=== PATIENT | male | born 1975 | race Caucasian/White ===

== ENCOUNTER 2016-12-10 04:53 | Emergency (ER) | payer OTHER ==
[~2016-12-10] VITALS: Ht 195.6 cm; Wt 181.4 kg
--- NOTE | 2016-12-10 05:11 | ED GI/GU/ABDOMINAL COMPLAINT ---
See Addendum History of Present Illness General Chief Complaint: Abdominal Pain/Flank Pain Stated Complaint: ABD PAIN, BELCHING, +ND, 8 HRS Source: patient Exam Limitations: no limitations Vital Signs & Intake/Output Vital Signs & Intake/Output Vital Signs Date Time Temp Pulse Resp B/P B/P Pulse O2 O2 Flow FiO2 Mean Ox Delivery Rate 12/10 0748 96.7 77 15 128/76 98 Room Air Room Air 12/10 0508 97.1 68 18 179/92 98 Room Air Allergies Coded Allergies: No Known Allergies (12/10/16) Triage Note: 41 YO MALE TO ER C/O EPIGASTRIC PAIN RADITING TO HIS BACK WITH +BLECHING. STATES HE ATE A MEAL AT [employer] APPROX 8 HOURS AGO AND SINCE THEN HAS HAD THE SYMPTOMS. STATES PAIN IS SHARP IN NATURE. STATES +DIRRHEA FOR A COUPLE WEEKS. Triage Nurses Notes Reviewed? yes HPI: Patient was at the [facility] and had dinner. Shortly after having dinner he developed a sharp stabbing pain in his epigastric area that radiated through to his back. Positive nausea but no vomiting. He has been burping a lot. He denies any chest pain. There is no diarrhea. He denies any fevers or chills. He rates the pain at 7 out of 10. (MAZIN ESTRADA,JANEE Yee) Past History Travel History Traveled to [place] past 21 day No Medical History Any Pertinent Medical History? 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 No (MAZIN ESTRADA,JANEE Yee) Review of Systems Review of Systems Constitutional: Reports: no symptoms. EENTM: Reports: no symptoms. Respiratory: Reports: no symptoms. Cardiovascular: Reports: no symptoms. GI: Reports: see HPI, abdominal pain, nausea. Genitourinary: Reports: no symptoms. Musculoskeletal: Reports: no symptoms. Skin: Reports: no symptoms. Neurological/Psychological: Reports: no symptoms. Hematologic/Endocrine: Reports: no symptoms. Immunologic/Allergic: Reports: no symptoms. All Other Systems: Reviewed and Negative (MAZIN ESTRADA,JANEE Yee) Physical Exam Physical Exam General Appearance: well developed/nourished, alert, awake, mild distress Head: atraumatic, normal appearance Eyes: Bilateral: PERRL, EOMI. Ears, Nose, Throat, Mouth: hearing grossly normal, DRY MUCOSA Neck: normal inspection, supple, full range of motion Respiratory: normal breath sounds, chest non-tender, no respiratory distress, lungs clear Cardiovascular: regular rate/rhythm, normal peripheral pulses Gastrointestinal: normal bowel sounds, soft, no organomegaly, tenderness (RUQ/ EPIGASTRIC AREAN), NO FIERRO'S SIGN Back: normal inspection, normal range of motion, NO CVA TENDERNESS Extremities: normal range of motion Neurologic/Psych: no motor/sensory deficits, awake, alert, oriented x 3, normal gait, normal mood/affect Skin: intact, normal color, warm/dry Core Measures ACS in differential dx? No Severe Sepsis Present: No Septic Shock Present: No (MAZIN ESTRADA,JANEE Yee) Progress Differential Diagnosis: AAA, AMI, biliary colic, cholecystitis, diverticulitis, gastritis, hepatitis, ischemic bowel, inflamm bowel dis, pancreatitis Plan of Care: Orders Procedure Date/time Status US-LIMITED ABDOMEN 12/10 620 Active TROPONIN LEVEL 12/10 0511 Complete LIPASE 12/10 0511 Complete COMPREHENSIVE METABOLIC PANEL 12/10 0511 Complete CBC WITHOUT DIFFERENTIAL 12/10 05 Complete AMYLASE 12/10 0511 Complete EKG 12/10 0511 Active Laboratory Tests 12/10/16 0535: Anion Gap 10, Estimated GFR > 60, BUN/Creatinine Ratio 15.0, Glucose 174 H, Calcium 9.3, Total Bilirubin 1.6 H, AST 296 H, ALT 239 H, Alkaline Phosphatase 175 H, Troponin I < 0.01, Total Protein 7.0, Albumin 4.1, Globulin 2.9, Albumin/Globulin Ratio 1.4, Amylase 42, Lipase 38 12/10/16 0533: CBC w Diff NO MAN DIFF REQ, RBC 4.95, MCV 83.1, MCH 27.9, RDW 14.2, MPV 8.1, Gran % 74.8, Lymphocytes % 19.1 L, Monocytes % 5.1, Eosinophils % 0.8, Basophils % 0.2, Absolute Granulocytes 7.5 H, Absolute Lymphocytes 1.9, Absolute Monocytes 0.5, Absolute Eosinophils 0.1, Absolute Basophils 0, PUBS MCHC 33.6 Diagnostic Imaging: Viewed by Me: Ultrasound. Discussed w/RAD: Ultrasound. Initial ED EKG: NSR, nonspecific ST T wave chg Rhythm Strip: normal sinus rhythm Hand-Off Endorsed To: SAMIA SMITH DO Endorsed Time: 0700 Pending: ultrasound Comments: Patient vomited in the emergency department just after swallowing the GI cocktail. Patient then felt immediate relief and is currently pain-free. (MAZIN ESTRADA,JANEE Yee) Departure Departure Disposition: STILL A PATIENT Condition: Stable Clinical Impression Primary Impression: Upper abdominal pain, unspecified Referrals: PATIENT HAS NO PRIMARY CARE DR (PCP/Family) Departure Forms: Customer Survey General Discharge Information (MAZIN ESTRADA,JANEE Yee) Departure Comments 12/10/16 8:22 AM The patient was signed out to me by Dr. Urias. He is pending ultrasound of the abdomen. (SAMIA SMITH DO)
[2016-12-10 05:42] LABS: ABSOLUTE BASOPHIL COUNT 0 /CUMM (0.0-0.2); ABSOLUTE EOSINOPHIL COUNT 0.1 /CUMM (0.0-0.7); ABSOLUTE GRANULOCYTE CT 7.5 /CUMM (1.4-6.5); ABSOLUTE LYMPH COUNT 1.9 /CUMM (1.2-3.4); ABSOLUTE MONOCYTE COUNT 0.5 /CUMM (0.10-0.60); BASOPHIL % 0.2 % (0.0-2.0); EOSINOPHIL % 0.8 % (0-5); GRANULOCYTE % 74.8 % (42.2-75.2); HEMATOCRIT 41.1 % (42-52); MEAN CORPUSCULAR HGB 27.9 PG (27.0-31.0); MEAN CORPUSCULAR HGB CONC 33.6 G/DL (33.0-37.0); MEAN CORPUSCULAR VOLUME 83.1 FL (80.0-94.0); MEAN PLATELET VOLUME 8.1 FL (7.4-10.4); PLATELET COUNT 312 /CUMM (130-400); RBC DISTRIBUTION WIDTH 14.2 % (11.5-14.5); RED BLOOD CELL CT 4.95 /CUMM (4.70-6.10); WHITE BLOOD CELL COUNT 10.1 /CUMM (4.8-10.8)
--- NOTE | 2016-12-10 08:46 | ULTRASOUND REPORT ---
EXAMINATION: ABDOMINAL ULTRASOUND LIMITED CLINICAL INFORMATION: Abdominal pain. COMPARISON: None. TECHNIQUE: Real-time imaging of the right upper quadrant abdominal viscera. Evaluation is limited secondary to the patient's extreme body habitus and overlying bowel gas. FINDINGS: PANCREAS: The pancreas is obscured due to overlying bowel gas. LIVER: The liver is of normal size and diffuse increased echogenicity without focal lesions nor intrahepatic biliary ductal dilation. GALLBLADDER: The gallbladder is nonvisualized. COMMON BILE DUCT: The common duct is not visualized. RIGHT KIDNEY: Normal. No hydronephrosis. No renal calculi or focal parenchymal lesions. The kidney measures 11.2 cm in maximum dimension. FREE FLUID: None. IMPRESSION: Liver of diffuse increased echogenicity without focal lesions. The appearance is nonspecific, but consistent with fatty infiltration. Limited examination secondary to the patient's extreme body habitus. The gallbladder and pancreas are not visualized.
--- NOTE | 2016-12-10 10:10 | CT SCAN REPORT ---
EXAMINATION: CT ABDOMEN AND PELVIS WITH CONTRAST CLINICAL INFORMATION: Right upper quadrant pain. Evaluate for cholecystitis. COMPARISON: None TECHNIQUE: Multidetector volumetric imaging was performed of the abdomen and pelvis before and after the IV administration of 95 mL of Optiray 320 intravenous contrast. Sagittal and coronal reformatted images were obtained on the technologist's workstation. DLP: 1763 mGy-cm. FINDINGS: LUNG BASES: The visualized lung bases are unremarkable. LIVER, GALLBLADDER, AND BILIARY TREE: The liver is normal in size, shape, and attenuation. No focal hepatic lesion or biliary ductal dilatation is present. The gallbladder is unremarkable with no evidence of radiopaque gallstones, gallbladder wall thickening, or obvious pericholecystic inflammatory changes. PANCREAS: There is fatty infiltration of the pancreas. SPLEEN: Unremarkable. ADRENAL GLANDS: Unremarkable. KIDNEYS AND URETERS: There is a 1.3 cm low-attenuation lesion in the lower pole of the right kidney. Hounsfield units following IV contrast measure 44 not compatible with a simple cyst. The kidneys are otherwise unremarkable. BLADDER: Unremarkable. GASTROINTESTINAL TRACT: There is evidence of diverticulosis. Small and large bowel is otherwise normal. The appendix is not identified with certainty. No evidence of appendicitis is seen. ABDOMINAL WALL: No significant hernia is appreciated. LYMPH NODES: No enlarged lymph nodes are seen. There is no ascites. VASCULAR: The abdominal aorta is normal in caliber. PELVIC VISCERA: Unremarkable. OSSEOUS STRUCTURES: There are degenerative changes of the spine. IMPRESSION: Diverticulosis. No evidence of diverticulitis. 1.3 cm low-attenuation lesion in the lower pole of the right kidney not compatible with a simple cyst. Follow-up ultrasound is recommended. Fatty infiltration of the pancreas. Unremarkable gallbladder by CT.
[2016-12-10 10:16] VITALS: BP 144/79
== END 2016-12-10 11:16 ==
LOC: ERH 04:53
PROVIDERS: Emergency Medicine
DX: R10.13 Epigastric pain (principal)
CPT/HCPCS: 74177; 93005; 93010; 96374; 96375; J1885; J2405

== ENCOUNTER 2016-12-11 22:28 | Inpatient (IN) | payer OTHER ==
[~2016-12-11] VITALS: Ht 195.6 cm; Wt 226.8 kg
--- NOTE | 2016-12-11 22:40 | NUR ---
PT RETURNS TO ED C/O RETURNED EPIGASTRIC PAIN. PAIN STARTED APPROX 1 HR AFTER EATING BAKED CHICKEN, BROWN RICE (WITH BUTTER) AND CORN ON THE COB FOR DINNER. PAIN HAS BEEN CONSTANT FOR 2 HRS. STATES IS TRYING TO BELCH. 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 "I'VE HAD A COUPLE OF POOPS THAT DID FLOAT OVER THE LAST 6 MONTHS" DENIES NAUSEA AT THIS TIME. STATES DOES NOT WANT GI COKTAIL AGAIN "I THREW THAT AND MY DINNER RIGHT UP AFTER TAKING IT" WAS SEEN FOR THE SAME YESTERDAY. HAD US AND CT
--- NOTE | 2016-12-11 22:47 | ED GI/GU/ABDOMINAL COMPLAINT ---
History of Present Illness General Chief Complaint: Abdominal Pain/Flank Pain Stated Complaint: ABD PAIN Source: patient Exam Limitations: no limitations Vital Signs & Intake/Output Vital Signs & Intake/Output Vital Signs Date Time Temp Pulse Resp B/P B/P Pulse O2 O2 Flow FiO2 Mean Ox Delivery Rate 12/12 1345 98.2 79 18 130/90 96 Room Air 12/12 0633 97.5 74 20 132/76 96 Room Air 12/12 0347 98.6 71 20 150/80 97 Room Air 12/12 0309 98.9 68 20 164/86 96 Room Air 12/12 0049 Room Air 12/12 0021 98.1 64 20 140/74 95 Room Air 12/11 2233 96.8 64 18 163/89 98 Room Air ED Intake and Output 12/12 0000 12/11 1200 Intake Total Output Total Balance Patient 400 lb Weight Weight Reported by Patient Measurement Method Allergies Coded Allergies: No Known Allergies (12/11/16) Reconcile Medications No Known Home Medications Triage Note: PT RETURNS TO ED C/O RETURNED EPIGASTRIC PAIN. PAIN STARTED APPROX 1 HR AFTER EATING BAKED CHICKEN, BROWN RICE (WITH BUTTER) AND CORN ON THE COB FOR DINNER. PAIN HAS BEEN CONSTANT FOR 2 HRS. STATES IS TRYING TO BELCH. 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 "I'VE HAD A COUPLE OF POOPS THAT DID FLOAT OVER THE LAST 6 MONTHS" DENIES NAUSEA AT THIS TIME. STATES DOES NOT WANT GI COKTAIL AGAIN "I THREW THAT AND MY DINNER RIGHT UP AFTER TAKING IT" WAS SEEN FOR THE SAME YESTERDAY. HAD US AND CT Triage Nurses Notes Reviewed? yes Onset: Abrupt Duration: hour(s): (1) Timing: single episode today HPI: 41 year old male who prsents with sharp epigastric pain radiating to his back. Started off dull and became sharp. 2 days ago he was seen in the ER and he was sent home. He had a GI cocktail, Llabs and ct scan. Patient was symptom free for 2 days. TOday he had chicken, rice and corn which was his first normal sized meal and states that pain started after that. He does not consume alcohol or drugs. No daily medications Past History Travel History Traveled to [place] past 21 day No Medical History Any Pertinent Medical History? 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 No Review of Systems Review of Systems Constitutional: Denies: chills, fever. EENTM: Reports: no symptoms. Respiratory: Denies: cough, short of breath, sputum production. Cardiovascular: Denies: chest pain, palpitations, peripheral edema. GI: Reports: abdominal pain, nausea. Denies: vomiting. Genitourinary: Denies: discharge, dysuria. Musculoskeletal: Denies: back pain. Skin: Reports: no symptoms. Neurological/Psychological: Reports: no symptoms. Hematologic/Endocrine: Denies: bruising, bleeding, polyuria, polydipsia. Immunologic/Allergic: Denies: splenectomy. All Other Systems: Reviewed and Negative Physical Exam Physical Exam General Appearance: well developed/nourished, alert, awake, mild distress, moderate distress, obese Head: atraumatic, normal appearance Eyes: Bilateral: normal appearance, PERRL, EOMI. Ears, Nose, Throat, Mouth: hearing grossly normal, moist mucous membrane Neck: normal inspection, supple, full range of motion Respiratory: normal breath sounds, chest non-tender, no respiratory distress Cardiovascular: regular rate/rhythm Peripheral Pulses: 2+ radial (R), 2+ radial (L) Gastrointestinal: normal bowel sounds, soft, tenderness (EPIGASTRIC) Back: normal inspection, normal range of motion Extremities: normal range of motion Neurologic/Psych: no motor/sensory deficits, awake, alert, oriented x 3 Skin: intact, normal color, cyanosis Core Measures ACS in differential dx? No Severe Sepsis Present: No Septic Shock Present: No Progress Differential Diagnosis: AMI, biliary colic, cholecystitis, gastritis, hepatitis, hernia, pancreatitis, PUD/GERD, perforated viscous Plan of Care: Orders Procedure Date/time Status Nothing by Mouth 12/12 B Active Change service to 12/12 2106 Active Pathway - chart 12/12 757 Active House Staff 12/12 075 Active Patient Data 12/12 075 Active LIPASE 12/12 06 Complete HEPATIC FUNCTION PANEL 06/27 0600 Complete CBC WITHOUT DIFFERENTIAL 06/27 0600 Complete BASIC ELECTROLYTES PLUS BUN&CR 12/12 0600 Complete Pathway - chart 12/12 0413 Active Vital Signs 12/12 0342 Active Teach/Educate 12/12 034 Active Pain Treatment and Response 12/12 034 Active Nutritional Intake, Monitor 12/12 034 Active Isolation 12/12 0342 Active Intake & Output 12/12 034 Active Patient Care Conference 12/12 034 Active Activity/Ambulation 12/12 034 Active Patient Data 12/12 0227 Active TROPONIN LEVEL 12/12 0137 Complete ED Holding Orders 12/12 0117 Active Admit to inpatient 12/12 0117 Active Vital Signs 12/12 0117 Active Code Status 12/12 0117 Active Add-on Test (ER Only) 12/12 0108 Active House Staff 12/12 UNK Active VTE Mechanical Prophylaxis 12/12 UNK Active Patient Safety Monitor 12/12 UNK Complete MRA-ABDOMEN 12/12 UNK Active MISSING MEDICATION FORM 12/12 UNK Active Add-on Test (ER Only) 12/11 2332 Active TROPONIN LEVEL 12/11 2329 Complete LIPID PANEL 12/11 2329 Complete Intake & Output 12/11 2327 Active URINALYSIS 12/11 2306 Complete LIPASE 12/11 2306 Complete COMPREHENSIVE METABOLIC PANEL 12/11 2306 Complete CBC WITHOUT DIFFERENTIAL 12/11 2306 Complete EKG 12/11 2306 Active Current Medications Sig/Angela Start time Last Medication Dose Stop Time Status Admin Enoxaparin Sodium 40 MG DAILY 12/12 1000 AC 12/12 (Lovenox) 0840 Omeprazole 40 MG DAILY 12/12 1000 AC 12/12 (Prilosec) 1135 Hydromorphone HCl 0.6 MG Q4P PRN 12/12 0945 AC 12/12 (Dilaudid) 1400 Acetaminophen 1,000 MG Q6P PRN 12/12 0845 AC (Ofirmev) N/A 1 UNIT (No Carrier) Lactated Ringer's 1,000 ML Q6H 12/12 0415 AC 12/12 (Lactated Ringers) 2000 Ondansetron HCl 4 MG Q6P PRN 12/12 0415 AC (Zofran) Pantoprazole Sodium 40 MG ONCE ONE 12/11 2315 CAN (Protonix) 12/11 231 Laboratory Tests 12/12/16 0735: Anion Gap 9, Estimated GFR > 60, BUN/Creatinine Ratio 11.3, Total Bilirubin 1.7 H, Direct Bilirubin 1.2 H, AST 462 H, ALT 694 H, Alkaline Phosphatase 220 H, Total Protein 6.1 L, Albumin 3.3 L, Lipase 5787 H, CBC w Diff NO MAN DIFF REQ , RBC 4.39 L, MCV 83.2, MCH 28.3, RDW 14.0, MPV 8.1, Gran % 70.6, Lymphocytes % 22.3, Monocytes % 5.6, Eosinophils % 1.2, Basophils % 0.3, Absolute Granulocytes 5.1, Absolute Lymphocytes 1.6, Absolute Monocytes 0.4, Absolute Eosinophils 0.1, Absolute Basophils 0, PUBS MCHC 34.0 12/12/16 0152: Troponin I < 0.01 12/12/16 0113: Urinalysis LIGHT H, Urine Color YEL, Urine Clarity CLEAR, Urine pH 6.0, Ur Specific Central 1.025, Urine Protein NEG, Urine Ketones TRACE H, Urine Nitrite NEG, Urine Bilirubin POS@ICTO H, Urine Urobilinogen 1.0, Ur Leukocyte Esterase TRACE H, Ur Microscopic SEDIMENT EXAMINED, Urine WBC 1-3 H, Ur Epithelial Cells MOD H, Urine Bacteria RARE H, Urine Mucus MOD H, Urine Hemoglobin NEG, Urine Glucose NEG 12/11/16 2329: Anion Gap 9, Estimated GFR > 60, BUN/Creatinine Ratio 13.8, Glucose 125 H, Calcium 8.4, Total Bilirubin 1.5 H, AST 251 H, ALT 497 H, Alkaline Phosphatase 222 H, Troponin I < 0.01, Total Protein 6.1 L, Albumin 3.6, Globulin 2.5, Albumin/Globulin Ratio 1.4, Triglycerides 159 H, Cholesterol 205 H, LDL Cholesterol, Calc 128, HDL Cholesterol 46, Cholesterol/HDL Ratio 4, Lipase 7340 H, CBC w Diff NO MAN DIFF REQ, RBC 4.47 L, MCV 83.2, MCH 27.6, RDW 14.0, MPV 8.1, Gran % 67.4, Lymphocytes % 24.0, Monocytes % 6.5, Eosinophils % 1.7, Basophils % 0.4, Absolute Granulocytes 4.9, Absolute Lymphocytes 1.7, Absolute Monocytes 0.5, Absolute Eosinophils 0.1, Absolute Basophils 0, PUBS MCHC 33.2 Initial ED EKG: NSR Departure Departure Time of Disposition: 107 Disposition: STILL A PATIENT Condition: Stable Clinical Impression Primary Impression: Pancreatitis Secondary Impressions: Elevated troponin Referrals: PATIENT HAS NO PRIMARY CARE DR (PCP/Family) Departure Forms: Customer Survey General Discharge Information Prescriptions: Current Visit Scripts No Known Home Medications Admission Note Spoke With: ZEINAB BEAVER MD Documentation of Exam: Documentation of any treatments & extenuating circumstances including Concerns Regarding Discharge (functional status, medication knowledge or non-compliance, living conditions, etc.) that warrant an admission rather than observation: [NPO , IV FLUIDS, PAIN CONTROL, SERIAL EKG/TROPONIN, GI CONSULTATION]
--- NOTE | 2016-12-11 23:26 | NUR ---
PT MEDICATED WITH PRILOSEC 40MG PO. PT REFUSED GI COCKTAIL. DR BOOTH AWARE
[2016-12-11 23:46] LABS: ABSOLUTE BASOPHIL COUNT 0 /CUMM (0.0-0.2); ABSOLUTE EOSINOPHIL COUNT 0.1 /CUMM (0.0-0.7); ABSOLUTE GRANULOCYTE CT 4.9 /CUMM (1.4-6.5); ABSOLUTE LYMPH COUNT 1.7 /CUMM (1.2-3.4); ABSOLUTE MONOCYTE COUNT 0.5 /CUMM (0.10-0.60); BASOPHIL % 0.4 % (0.0-2.0); EOSINOPHIL % 1.7 % (0-5); GRANULOCYTE % 67.4 % (42.2-75.2); HEMATOCRIT 37.2 % (42-52); MEAN CORPUSCULAR HGB 27.6 PG (27.0-31.0); MEAN CORPUSCULAR HGB CONC 33.2 G/DL (33.0-37.0); MEAN CORPUSCULAR VOLUME 83.2 FL (80.0-94.0); MEAN PLATELET VOLUME 8.1 FL (7.4-10.4); PLATELET COUNT 256 /CUMM (130-400); RED BLOOD CELL CT 4.47 /CUMM (4.70-6.10); WHITE BLOOD CELL COUNT 7.2 /CUMM (4.8-10.8)
--- NOTE | 2016-12-12 00:32 | NUR ---
CRITICAL TEST RESULTS [id number] RAYSHAWN SMITH 41 M TESTS AND RESULTS: TROPONIN 0.15 Results received and read back by: CUONG GROVES Results received date and time: 12/12/16 0033 The following provider was notified of the results, and read the results back: DR BOOTH Notified date and time: 12/12/16 at 0033
--- NOTE | 2016-12-12 01:16 | NUR ---
DR BOOTH AT BEDSIDE TO DISCUSS POC. URINE SAMPLES OBTAINED AND SENT TO LAB ([facility]). 1 LITER NS STARTED AT 150ML/HR.
--- NOTE | 2016-12-12 01:32 | NUR ---
LABRATORY TECH CALLED TO REPORT REPEAT CONFIRMATION TROPONIN LEVEL WAS NEGATIVE TWICE. DR BOOTH INFORMED. TROPONIN REDRAWN AND SENT TO LAB BY OSM[facility] BLACK
--- NOTE | 2016-12-12 02:32 | History & Physical ---
SKYE ESTRADA,[facility] 12/12/16 0232: General Information and HPI MD Statement: I have seen and personally examined RAYSHAWN SMITH and documented this H&P. The patient is a 41 year old M who presented with a patient stated chief complaint of [epigastric pain]. Source of Information: patient, family Exam Limitations: no limitations History of Present Illness: Mr. Smith is 41 year old male with chief complain of epigastric pain for 1 day. Patient has past medical history significant for morbid obesity, diverticulosis (Asymptomatic) who presented with chief complaint of epigastric pain for 1 day. Patient reported eating outside on Saturday 12/09 (fried rice, fried [place], meatballs) and felt indigestion followed by epigastric dull than sharp pain radiating to the back, patient came to the ED on the 12/10 for which he received GI cocktail and pain medication, symptoms resolved completely and patient was discharged home. On Monday 12/11, patient was able to eat light breakfast and lunch without any complaint, in the evening after eating baked chicken and brown rice, patient started to have epigastric achy pain that progressed to sharp pain radiates to the back associated with nausea, burping, one bowel movement of yellowish hard stool for which he presented to ED for evaluation. Patient denied vomiting, diarrhea (history of watery bowel movement couple of weeks ago, dark brown color, no blood). Patient denied any change in color of urine (in ED noticed to be brown), change in color of skin, eye, itching. Patient denied taking any medication on daily basis, herbal medication , [id number] medication, alcohol drinking. He didn't have physical checkup for the last 3-4 years. Denied any history of having similar abdominal pain. 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 Patient is in vacation visiting family from [facility]. 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 Exam & Diagnostic Data Last 24 Hrs of Vital Signs/I&O Vital Signs Date Time Temp Pulse Resp B/P B/P Pulse O2 O2 Flow FiO2 Mean Ox Delivery Rate 12/12 0347 98.6 71 20 150/80 97 Room Air 12/12 0309 98.9 68 20 164/86 96 Room Air 12/12 0049 Room Air 12/12 0021 98.1 64 20 140/74 95 Room Air 12/11 2233 96.8 64 18 163/89 98 Room Air Intake & Output 12/12 0800 12/12 0000 12/11 1600 Intake Total Output Total Balance Patient 181.437 kg 181.437 kg Weight Weight Reported by Patient Measurement Method Physical Exam General Appearance Alert, Oriented X3, Cooperative, No Acute Distress Skin No Rashes, No Breakdown, No Significant Lesion Skin Temp/Moisture Exam: Warm/Dry HEENT Atraumatic, PERRLA, EOMI, Mucous Membr. moist/pink Neck Supple, No JVD Lymphatic no cervical lymphadenopathy Cardiovascular Regular Rate, Normal S1, Normal S2, No Murmurs Lungs Clear to Auscultation, Normal Air Movement Abdomen Normal Bowel Sounds, Soft, No Hepatospenomegaly, No Masses, epigastric tenderness Neurological Normal Gait, Normal Speech, Strength at 5/5 X4 Ext, Normal Tone, Sensation Intact, Cranial Nerves 3-12 NL, Reflexes 2+ Extremities No Clubbing, No Cyanosis, Normal Pulses, No Tenderness/Swelling, Bilateral pedal trace edema Last 24 Hrs of Labs/Favio: Laboratory Tests 12/12/16 0152: Troponin I < 0.01 12/12/16 0113: Urinalysis LIGHT H, Urine Color YEL, Urine Clarity CLEAR, Urine pH 6.0, Ur Specific [place] 1.025, Urine Protein NEG, Urine Ketones TRACE H, Urine Nitrite NEG, Urine Bilirubin POS@ICTO H, Urine Urobilinogen 1.0, Ur Leukocyte Esterase TRACE H, Ur Microscopic SEDIMENT EXAMINED, Urine WBC 1-3 H, Ur Epithelial Cells MOD H, Urine Bacteria RARE H, Urine Mucus MOD H, Urine Hemoglobin NEG, Urine Glucose NEG 12/11/16 1929: Anion Gap 9, Estimated GFR > 60, BUN/Creatinine Ratio 13.8, Glucose 125 H, Calcium 8.4, Total Bilirubin 1.5 H, AST 251 H, ALT 497 H, Alkaline Phosphatase 222 H, Troponin I < 0.01, Total Protein 6.1 L, Albumin 3.6, Globulin 2.5, Albumin/Globulin Ratio 1.4, Triglycerides 159 H, Cholesterol 205 H, LDL Cholesterol, Calc 128, HDL Cholesterol 46, Cholesterol/HDL Ratio 4, Lipase 7340 H, CBC w Diff NO MAN DIFF REQ, RBC 4.47 L, MCV 83.2, MCH 27.6, RDW 14.0, MPV 8.1, Gran % 67.4, Lymphocytes % 24.0, Monocytes % 6.5, Eosinophils % 1.7, Basophils % 0.4, Absolute Granulocytes 4.9, Absolute Lymphocytes 1.7, Absolute Monocytes 0.5, Absolute Eosinophils 0.1, Absolute Basophils 0, PUBS MCHC 33.2 Diagnostic Data EKG Results IA 67 SR, QTC [address] abdomen and pelvis with IV contrast: FINDINGS: LUNG BASES: The visualized lung bases are unremarkable. LIVER, GALLBLADDER, AND BILIARY TREE: The liver is normal in size, shape, and attenuation. No focal hepatic lesion or biliary ductal dilatation is present. The gallbladder is unremarkable with no evidence of radiopaque gallstones, gallbladder wall thickening, or obvious pericholecystic inflammatory changes. PANCREAS: There is fatty infiltration of the pancreas. SPLEEN: Unremarkable. ADRENAL GLANDS: Unremarkable. KIDNEYS AND URETERS: There is a 1.3 cm low-attenuation lesion in the lower pole of the right kidney. Hounsfield units following IV contrast measure 44 not compatible with a simple cyst. The kidneys are otherwise unremarkable. BLADDER: Unremarkable. GASTROINTESTINAL TRACT: There is evidence of diverticulosis. Small and large bowel is otherwise normal. The appendix is not identified with certainty. No evidence of appendicitis is seen. ABDOMINAL WALL: No significant hernia is appreciated. LYMPH NODES: No enlarged lymph nodes are seen. There is no ascites. VASCULAR: The abdominal aorta is normal in caliber. PELVIC VISCERA: Unremarkable. OSSEOUS STRUCTURES: There are degenerative changes of the spine. IMPRESSION: Diverticulosis. No evidence of diverticulitis. 1.3 cm low-attenuation lesion in the lower pole of the right kidney not compatible with a simple cyst. Follow-up ultrasound is recommended. Fatty infiltration of the pancreas. Unremarkable gallbladder by CT. Abdominal US FINDINGS: PANCREAS: The pancreas is obscured due to overlying bowel gas. LIVER: The liver is of normal size and diffuse increased echogenicity without focal lesions nor intrahepatic biliary ductal dilation. GALLBLADDER: The gallbladder is nonvisualized. COMMON BILE DUCT: The common duct is not visualized. RIGHT KIDNEY: Normal. No hydronephrosis. No renal calculi or focal parenchymal lesions. The kidney measures 11.2 cm in maximum dimension. FREE FLUID: None. IMPRESSION: Liver of diffuse increased echogenicity without focal lesions. The appearance is nonspecific, but consistent with fatty infiltration. Limited examination secondary to the patient's extreme body habitus. The gallbladder and pancreas are not visualized. Assessment/Plan Assessment: Mr. Smith is 41 year old male with past medical history significant for morbid obesity, diverticulosis (Asymptomatic) who presented with chief complaint of epigastric pain associated with nausea, burping for 1 day. On admission Vitals temperature 96.8, pulse 64, blood pressure 163/89, respiratory rate 18 saturating 98% on room air Pertient lab WBC 7.2, H&H 12.4/37.2, sodium 139, potassium 3.9, BUN/creatinine 11/0.8, calcium 8.4, AST 251, ALT 497, alkaline phosphatase 222, total bilirubin 1.5, triglycerides 159, cholesterol 205, lipase 7340, UA positive for leukocyte esterase, ketones Imaging please see above CT abdomen and pelvis, ultrasound abdomen on 12/10/16 Problem list #Acute pancreatitis #Transaminitis #Hypercholesterolemia #Prehypertension #Morbid obesity Plan -Admit to general medical floor -IV fluid Ringer lactate 200 mL per hour -Pain management with Oxycodine, Dilaudid (patient doesn't have allergy from morphine but had warm flash sensation after having morphine) -Nothing by mouth -Protonix -Please contact ultrasound department to reread the abdominal ultrasound was done on 12/10 -Monitor LFT in a.m. -Avoid acetaminophen for transaminitis -Monitor blood pressure, consider starting antihypertensive if continue to be has high readings -Weight reduction counseling -Nutritional consultation -Code full -DVT prophylaxis Lovenox As Ranked By This Provider Problem List: 1. Pancreatitis Core Measures/Miscellaneous Acute Coronary Syndrome ACS Diagnosis: No Cerebrovascular Accident CVA/TIA Diagnosis: No Congestive Heart Failure CHF Diagnosis: No VTE (View Protocol) VTE Risk Factors: Age > 40 No [facility] VTE prophylaxis d/t: No contraindications No VTE Pharm Prophylaxis d/t: No contraindications VTE Diagnosis: No VTE Type: NONE VTE Confirmed by (Test): NONE Sepsis (View Protocol) Severe Sepsis Present: No Septic Shock Septic Shock Present: No Miscellaneous Documentation Attending Case Discussed With: ZEINAB BEAVER MD Primary Care Physician: PATIENT HAS NO PRIMARY CARE DR Patient sees these Specialists none Level of Patient Care: General Medicine CUCA MENDOZA MD 12/12/16 0247: Resident Review Statement Resident Statement: examined this patient, discussed with post graduate intern, agreed with post graduate intern Other Findings: 41-year-old male with no significant past medical history except morbid obesity and borderline high cholesterol who is visiting from [facility] and presents with new onset of sharp epigastric pain after eating a meal. Pain is constant, radiating to his mid back with associated nausea and burping but no vomiting, fever, jaundice, shortness of breath or syncope. Evaluated in ER and was though to indigestion. Past few weeks of on and off diarrhea, dark brown, not blood. yellow stool this evening. Has noticed darkening of urine, no jaundice or itching. Hx of borderline high cholesterol but was never started on medications. Does not take any medications or herbal supplements. Takes only advil as needed for headaches. He denies ever drinking alcohol or smoking. No hx of gall stones. He does report a hx of gall bladder infection and pancreatitis. No Fhx of high cholesterol, diabetes, or cancer. Exam, lab work and imaging as above. Assessment 1. Acute Pancreatiti of unclear etiology; r/o idiopathic as there is no clear cause based on labwork and imaging at this time. Plan Admit to general medicine floor Keep nothing by mouth for now IVF Ringer's lactate 200cc/hr Adequate Pain control IV Protonix 40mg daily Consider GI consult if patient does not improve with supportive therapy DVT ppx with SC lovenox FC ZEINAB BEAVER 12/12/16 0440: Attending MD Review Statement Attending Statement Attending MD Statement: examined this patient, discuss w/resident/PA/BRIM POUNCER, agreed w/resident/PA/BRIM POUNCER, reviewed EMR data (avail), reviewed images, amended to note Attending Assessment/Plan: CC: epigastric pain PMH: morbid obesiy Patient comes to ER with recurrent sharp epigastric pain radiating to back. Patient came a day before to ER with similar episode, was given GI cocktail, labs and CT scan was unremarkable, patient was discharged home. After going home patient was apparently all right in morning but sharp pain started after eating food, associated with a nausea, trying to belch. No history of alcohol, illicit drug use, similar kind of pain in the past, gallstone. Mildly elevated cholesterol in the past, not on any treatment. Vitals, afebrile, pulse 64, RR 20, blood pressure upon arrival 163/89 decreased to 140/74, saturating well on room air. On exam: A O 3, morbidly obese, cooperative, no acute distress, neck supple, JVD normal, no lymphadenopathy, mucosa moist, no focal neurological deficit, no dependent edema, no obvious skin rashes or inflammation CVS: S1-S2, RRR. RS: Clear to auscultate bilaterally. Abdomen: Soft, mild epigastric tenderness, difficult to elicit Obregon's sign, ND, bowel sounds present. Labs: Hemoglobin 12.4, hematocrit 37.2, otherwise CBC unremarkable. Bicarbonate 25, BUN 11, anion gap 9, creatinine 0.8, glucose 125, bilirubin 1.5, AST 251, ALT 497, alkaline phosphatase 222, troponin less than 0.01, lipase 7340, CT abdomen and pelvis abdomen ultrasound obtain On 12/10/2016 : 1. Liver of diffuse increased echogenicity without focal lesions. The appearance is nonspecific, but consistent with fatty infiltration. 2. Limited examination secondary to the patient's extreme body habitus. The gallbladder and pancreas are not visualized. 3. Diverticulosis. No evidence of diverticulitis. 1.3 cm low-attenuation lesion in the lower pole of the right kidney not compatible with a simple cyst. Follow- up ultrasound is recommended. Fatty infiltration of the pancreas. Unremarkable gallbladder by CT. A and P Patient appears to have pancreatitis of unclear etiology. His lipase markedly increased as compared to yesterday's labs. At the same time his transaminase and alkaline phosphatase are trending up as well. Mildly elevated bilirubin. Ultrasound abdomen could not locate gallbladder stone, this finding should be reconfirmed in the morning, repeat BMP and LFT, if transaminases and alkaline phosphatase and bilirubin trending up digital media specialist should be involved to address further testing for suspected gallstone pancreatitis. + Pancreatitis + Morbid obesity + Transaminitis with elevated alkaline phosphatase - Admit to general medicine - Continue aggressive hydration with lactated Ringer at 200 mL per hour - Strict I's and O's - Nothing by mouth, advanced clears as tolerated - Adequate pain control with opiates - Protonix 40 mg IV daily - DVT prophylaxis with heparin - Repeat CBC, BMP, LFT in a.m. - Consult GI if transaminases and alkaline phosphatase trending up as mentioned above
--- NOTE | 2016-12-12 02:45 | NUR ---
HOUSE STAFF AT BEDSIDE TO EVAL PT
--- NOTE | 2016-12-12 02:48 | NUR ---
Emergency Dept [facility] Admit Note: To be admitted to [facility] by DR. BEAVER with PANCREATITIS as the diagnosis, to [id number] location. Nursing Valet Service Attendant and admitting notified 12/12/16 at 0230
--- NOTE | 2016-12-12 02:57 | NUR ---
REPORT CALLED TO CATHRYN DAS
--- NOTE | 2016-12-12 03:09 | NUR ---
PT MEDICATED WITH MORPHINE 6MG IVP
[2016-12-12 03:47] VITALS: BP 150/80
--- NOTE | 2016-12-12 03:51 | NUR ---
PT ARRIVED TO FLOOR AT 0321 VIA STRETCHER. A&OX3, INDEPENDENT OOB, STEADY GAIT, SKIN INTACT, LUNGS CLEAR, C/O PAIN 2/10 EPIGASTRIC DULL CONSTANT PAIN, DENIES NEED FOR INTERVENTION. PT KEPT NPO AND EXPLAINED TO PT. PT ORIENTED TO ROOM, CALL CHUA AND STAFF. WILL CONTINUE TO MONITOR.
--- NOTE | 2016-12-12 04:41 | Admission Certification ---
Admission Certification Certification Statement - As attending physician, I certify that at the time of - admission, based on clinical presentation, severity of - symptoms, need for further diagnostic testing and - therapeutic interventions, and risk of adverse outcomes - without in-hospital treatment, in my clinical assessment, - this patient requires an acute hospital stay for a minimum - of two nights or longer. I have also considered psychsocial - factors such as support system, advanced age, financial - issues, cognitive issues, and failed out-patient treatments, - past re-admission history, safety of patient, and lack of - compliance as applicable. Specific rationale supporting this admission is: Acute Pancreatitis
[2016-12-12 06:33] VITALS: BP 132/76
--- NOTE | 2016-12-12 07:14 | Event Note ---
Event Note Event Note: 41-year-old male with past medical history for morbid obesity, diverticulosis, presented with chief complaints of epigastric pain, nausea, and is being managed for general medical floor for following issues: #Acute pancreatitis Patient's clinical history of sharp epigastric pain radiating to the back, with nausea, vomiting, increased lipase, is suggestive of acute pancreatitis, unknown cause. Many at times, this picture is seen when an existing biliary tract stone causes the initial pancreas inflammation, but later his past, and is not visible on imaging. Of note, cause for pancreatitis has been unknown in his case, as he does not consume alcohol, does not take any meds, no family history as such, no weight loss. * The since conditions seem to be stable, his hematocrit is not rising, calcium not decreasing, pain is not worse, and seems to be better. At this point, we'll continue to monitor him in general medical floor. * Continue IV fluids Ringer's lactate at 200 mL per hour, as the patient does not have sings of fluid overload * Continue adequate analgesia * GI service is consulted for further investigations/management suggestions, and a question whether MRCP should be pursued. #Morbid obesity Patient has been counseled about obesity, and will need further management as an outpatient basis. #Diet: Clear liquid #DVT ppx: SQ Lovenox #Code status: Full code
[2016-12-12 08:35] LABS: ABSOLUTE BASOPHIL COUNT 0 /CUMM (0.0-0.2); ABSOLUTE EOSINOPHIL COUNT 0.1 /CUMM (0.0-0.7); ABSOLUTE GRANULOCYTE CT 5.1 /CUMM (1.4-6.5); ABSOLUTE LYMPH COUNT 1.6 /CUMM (1.2-3.4); ABSOLUTE MONOCYTE COUNT 0.4 /CUMM (0.10-0.60); BASOPHIL % 0.3 % (0.0-2.0); EOSINOPHIL % 1.2 % (0-5); GRANULOCYTE % 70.6 % (42.2-75.2); HEMATOCRIT 36.5 % (42-52); MEAN CORPUSCULAR HGB 28.3 PG (27.0-31.0); MEAN CORPUSCULAR VOLUME 83.2 FL (80.0-94.0); MEAN PLATELET VOLUME 8.1 FL (7.4-10.4); PLATELET COUNT 259 /CUMM (130-400); RED BLOOD CELL CT 4.39 /CUMM (4.70-6.10); WHITE BLOOD CELL COUNT 7.2 /CUMM (4.8-10.8)
[2016-12-12 13:45] VITALS: BP 130/90
--- NOTE | 2016-12-12 19:55 | Cons- Gastroenterology ---
General Information and HPI Consulting Request Date of Consult: 12/12/16 (MD TRUNG/GASTROENTEROLOGY) Requested By: ZEINAB BEAVER MD Reason for Consult: Abdominal pain, elevated liver/pancreatic enzymes Source of Information: patient History of Present Illness: 41-year-old male with morbid obesity (40+ pounds) without antecedent GI/liver/ pancreatic disease or symptoms. Specifically, no previous recurrent or chronic heartburn, dysphagia, nausea, indigestion, abdominal pain, GI bleeding or abnormal bowel habits aside from occasional diarrhea. There is no history of jaundice, edema, or bleeding. His last physical including laboratory evaluation was 5 years ago. The patient does not drink alcohol or smoke cigarettes. He does not take any medications including [id number] agents. The patient had the acute onset of epigastric pain with radiation to the back 3 days ago after a meal. Early the next morning he was seen in the emergency room , given a GI cocktail, vomited, and improved. His bilirubin and liver enzymes were abnormal; amylase and lipase were normal. The pain recurred yesterday after dinner, and he was hospitalized. It has abated today, has moved to the left upper quadrant, and he no longer has back pain. He is not yet hungry. He denies fever, chills, sweats, chest pain, nausea. He has had bloodless diarrhea today. Family history negative for pancreatic disease, liver disease. Mother had gallstone pancreatitis and cholecystectomy. No colon cancer. Several family members with stomach cancer. Allergies/Medications Allergies: Coded Allergies: No Known Allergies (12/11/16) Home Med List: No Known Home Medications Current Medications: Current Medications Sig/Angela Start time Last Medication Dose Route Stop Time Status Admin Acetaminophen 1,000 MG Q6P PRN 12/12 0845 N/A 1 UNIT IV Enoxaparin Sodium 40 MG DAILY 12/12 1000 AC 12/12 SC 0840 Hydromorphone HCl 0.6 MG Q4P PRN 12/12 0945 AC 12/12 IV 1400 Hydromorphone HCl 0.5 MG Q4P PRN 12/12 0415 DC 12/12 IV 0841 Lactated Ringer's 1,000 ML Q6H 12/12 0415 AC 12/12 IV 1451 Morphine Sulfate 5 MG Q4 HRS NEEDED PRN 12/12 0845 DC IV Morphine Sulfate 6 MG ONCE ONE 12/12 0330 DC 12/12 IV 12/12 0331 0316 Morphine Sulfate 0 .STK-MED ONE 12/12 0306 DC .ROUTE Omeprazole 40 MG DAILY 12/12 1000 AC 12/12 PO 1135 Omeprazole 0 .STK-MED ONE 12/11 2329 DC PO Omeprazole 40 MG ONCE ONE 12/11 2315 DC 12/11 PO 12/11 2316 2325 Ondansetron HCl 4 MG Q6P PRN 12/12 0415 AC IV Oxycodone HCl 10 MG Q6P PRN 12/12 0415 DC PO Pantoprazole Sodium 40 MG ONCE ONE 12/11 2315 CAN IV 12/11 231 Patient Medication 1 ED .STK-MED ONE 12/12 1417 DC Teaching ED 12/12 1418 Sodium Chloride 1,000 ML ONCE ONE 12/12 0115 DC 12/12 IV 12/12 0754 0116 Past History Travel History Traveled to [place] past 21 day No Medical History Blood Transfusion Hx: No Neurological: NONE EENT: NONE Cardiovascular: NONE Respiratory: NONE Gastrointestinal: DIVERTICULOSIS Hepatic: NONE Renal: NONE Musculoskeletal: NONE Psychiatric: depression Endocrine: NONE Blood Disorders: NONE Cancer(s): NONE 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 EENTM: Denies: icterus, epistaxis. Cardiovascular: Denies: chest pain, edema, syncope. Respiratory: Denies: cough, short of breath. GI: Reports: see HPI. Genitourinary: Denies: dysuria, hematuria. Musculoskeletal: Denies: muscle stiffness, neck pain. Skin: Denies: jaundice, lesions. Neurological/Psychological: Denies: cognitive dysfunction, tremors. Hematologic/Endocrine: Denies: bruising, bleeding. Exam & Diagnostic Data Vital Signs and I&O Vital Signs Date Time Temp Pulse Resp B/P B/P Pulse O2 O2 Flow FiO2 Mean Ox Delivery Rate 12/12 1345 98.2 79 18 130/90 96 Room Air 12/12 0633 97.5 74 20 132/76 96 Room Air 12/12 0347 98.6 71 20 150/80 97 Room Air 12/12 0309 98.9 68 20 164/86 96 Room Air 12/12 0049 Room Air 12/12 0021 98.1 64 20 140/74 95 Room Air 12/11 2233 96.8 64 18 163/89 98 Room Air Intake & Output 12/12 1600 12/12 0400 12/11 0400 12/10 040 Intake Total 205 Output Total 1300 Balance 750 Intake, IV 2000 Intake, Oral 50 Number 1 Bowel Movements Output, Urine 1300 Patient 400 lb Weight Weight Reported by Patient Measurement Method Physical Exam: Obese white male, no apparent distress. Alert and oriented with normal cognition. Skin normal without lesion, rash, jaundice, spider telangiectasias, palmar erythema, petechiae. No adenopathy. No scleral icterus. Oropharynx normal. Neck supple without thyromegaly or mass. Heart regular rhythm. Lungs clear bilaterally. Abdomen obese and soft, normal bowel sounds; no tenderness, mass or organomegaly. Extremities without clubbing, cyanosis or edema. Pulses intact bilaterally. Results Pertinent Lab Results: Laboratory Tests 12/12 12/12 0735 0152 Chemistry Sodium (137 - 145 mmol/L) 137 Potassium (3.5 - 5.1 mmol/L) 4.0 Chloride (98 - 107 mmol/L) 105 Carbon Dioxide (22 - 30 mmol/L) 24 Anion Gap (5 - 16) 9 BUN (9 - 20 mg/dL) 9 Creatinine (0.7 - 1.2 mg/dL) 0.8 Estimated GFR (>60 ml/min) > 60 BUN/Creatinine Ratio (7 - 25 %) 11.3 Total Bilirubin (0.2 - 1.3 mg/dL) 1.7 H Direct Bilirubin (< 0.4 mg/dL) 1.2 H AST (17 - 59 U/L) 462 H ALT (21 - 72 U/L) 694 H Alkaline Phosphatase (< 127 U/L) 220 H Troponin I (<0.11 ng/ml) < 0.01 Total Protein (6.3 - 8.2 g/dL) 6.1 L Albumin (3.5 - 5.0 g/dL) 3.3 L Lipase (23 - 300 U/L) 5787 H Hematology CBC w Diff NO MAN DIFF REQ WBC (4.8 - 10.8 /CUMM) 7.2 RBC (4.70 - 6.10 /CUMM) 4.39 L Hgb (14.0 - 18.0 G/DL) 12.4 L Hct (42 - 52 %) 36.5 L MCV (80.0 - 94.0 FL) 83.2 MCH (27.0 - 31.0 PG) 28.3 RDW (11.5 - 14.5 %) 14.0 Plt Count (130 - 400 /CUMM) 259 MPV (7.4 - 10.4 FL) 8.1 Gran % (42.2 - 75.2 %) 70.6 Lymphocytes % (20.5 - 51.1 %) 22.3 Monocytes % (1.7 - 9.3 %) 5.6 Eosinophils % (0 - 5 %) 1.2 Basophils % (0.0 - 2.0 %) 0.3 Absolute Granulocytes (1.4 - 6.5 /CUMM) 5.1 Absolute Lymphocytes (1.2 - 3.4 /CUMM) 1.6 Absolute Monocytes (0.10 - 0.60 /CUMM) 0.4 Absolute Eosinophils (0.0 - 0.7 /CUMM) 0.1 Absolute Basophils (0.0 - 0.2 /CUMM) 0 PUBS MCHC (33.0 - 37.0 G/DL) 34.0 12/12 12/11 0113 2329 Chemistry Sodium (137 - 145 mmol/L) 139 Potassium (3.5 - 5.1 mmol/L) 3.9 Chloride (98 - 107 mmol/L) 106 Carbon Dioxide (22 - 30 mmol/L) 25 Anion Gap (5 - 16) 9 BUN (9 - 20 mg/dL) 11 Creatinine (0.7 - 1.2 mg/dL) 0.8 Estimated GFR (>60 ml/min) > 60 BUN/Creatinine Ratio (7 - 25 %) 13.8 Glucose (65 - 99 mg/dL) 125 H Calcium (8.4 - 10.2 mg/dL) 8.4 Total Bilirubin (0.2 - 1.3 mg/dL) 1.5 H AST (17 - 59 U/L) 251 H ALT (21 - 72 U/L) 497 H Alkaline Phosphatase (< 127 U/L) 222 H Troponin I (<0.11 ng/ml) < 0.01 Total Protein (6.3 - 8.2 g/dL) 6.1 L Albumin (3.5 - 5.0 g/dL) 3.6 Globulin (1.9 - 4.2 gm/dL) 2.5 Albumin/Globulin Ratio (1.1 - 2.2 %) 1.4 Triglycerides (<150 mg/dL) 159 H Cholesterol (< 200 MG/DL) 205 H LDL Cholesterol, Calc (65 - 129 mg/dL) 128 HDL Cholesterol (40 - 60 mg/dL) 46 Cholesterol/HDL Ratio (0.00 - 4.88 %) 4 Lipase (23 - 300 U/L) 7340 H Hematology CBC w Diff NO MAN DIFF REQ WBC (4.8 - 10.8 /CUMM) 7.2 RBC (4.70 - 6.10 /CUMM) 4.47 L Hgb (14.0 - 18.0 G/DL) 12.4 L Hct (42 - 52 %) 37.2 L MCV (80.0 - 94.0 FL) 83.2 MCH (27.0 - 31.0 PG) 27.6 RDW (11.5 - 14.5 %) 14.0 Plt Count (130 - 400 /CUMM) 256 MPV (7.4 - 10.4 FL) 8.1 Gran % (42.2 - 75.2 %) 67.4 Lymphocytes % (20.5 - 51.1 %) 24.0 Monocytes % (1.7 - 9.3 %) 6.5 Eosinophils % (0 - 5 %) 1.7 Basophils % (0.0 - 2.0 %) 0.4 Absolute Granulocytes (1.4 - 6.5 /CUMM) 4.9 Absolute Lymphocytes (1.2 - 3.4 /CUMM) 1.7 Absolute Monocytes (0.10 - 0.60 /CUMM) 0.5 Absolute Eosinophils (0.0 - 0.7 /CUMM) 0.1 Absolute Basophils (0.0 - 0.2 /CUMM) 0 PUBS MCHC (33.0 - 37.0 G/DL) 33.2 Urines Urinalysis LIGHT H Urine Color (YEL,AMB,STR) YEL Urine Clarity (CLEAR) CLEAR Urine pH (5.0 - 8.0) 6.0 Ur Specific [place]gap (1.001 - 1.035) 1.025 Urine Protein (NEG,<30 MG/DL) NEG Urine Ketones (NEG) TRACE H Urine Nitrite (NEG) NEG Urine Bilirubin (NEG) POS@ICTO H Urine Urobilinogen (0.1 - 1.0 EU/dl) 1.0 Ur Leukocyte Esterase (NEG) TRACE H Ur Microscopic SEDIMENT EXAMINED Urine WBC (0 - 2 /HPF) 1-3 H Ur Epithelial Cells (NONE,FEW) MOD H Urine Bacteria (NEG/NONE) RARE H Urine Mucus (FEW,NONE) MOD H Urine Hemoglobin (NEG) NEG Urine Glucose (N MG/DL) NEG Imaging/Other Studies: Ultrasound on 12/10: IMPRESSION: Liver of diffuse increased echogenicity without focal lesions. The appearance is nonspecific, but consistent with fatty infiltration. Limited examination secondary to the patient's extreme body habitus. The gallbladder and pancreas are not visualized. CT scan on 12/10: IMPRESSION: Diverticulosis. No evidence of diverticulitis. 1.3 cm low-attenuation lesion in the lower pole of the right kidney not compatible with a simple cyst. Follow-up ultrasound is recommended. Fatty infiltration of the pancreas. Unremarkable gallbladder by CT. Assessment/Plan Assessment/Recommendations: Acute pancreatitis as evidenced by elevated lipase and typical pain, although CT scan findings not described. The patient has improved; his pain is better. Ultrasound did not visualize the gallbladder, and CT scan did not demonstrate calcified gallstones; the etiology is still most likely biliary in nature especially given persistently elevated bilirubin, alkaline phosphatase and aminotransferases (albeit the steady values are not typical). The majority of gallstones will not be visualized by CT scan. There is no alcohol history, no hypertriglyceridemia, and no causative drugs. Recommendations * Clear liquid diet * Follow-up LFTs including alkaline phosphatase, in the morning * Hepatitis serologies, and INR * Parenteral analgesia and antiemetics as necessary * MRCP, if the patient's size permits. If cannot proceed, repeat ultrasound of the gallbladder and bile ducts. Consult Acknowledgment - Thank you for your consult request.
--- NOTE | 2016-12-12 21:03 | PN- Att Addend ---
Attending Addendum Attending Brief Note S: The patient was seen with the resident. Pain improvede at present. No nausea vomiting. O: VS: Vital Signs Date Time Temp Pulse Resp B/P B/P Pulse O2 O2 Flow FiO2 Mean Ox Delivery Rate 12/12 1345 98.2 79 18 130/90 96 Room Air Intake & Output 12/12 1600 Intake Total 1650 Output Total 1300 Balance 350 Intake, IV 1600 Intake, Oral 50 Number 1 Bowel Movements Output, Urine 1300 Current Medications Sig/Angela Start time Last Medication Dose Route Stop Time Status Admin Acetaminophen 1,000 MG Q6P PRN 12/12 0845 N/A 1 UNIT IV Enoxaparin Sodium 40 MG DAILY 12/12 1000 AC 12/12 SC 0840 Hydromorphone HCl 0.6 MG Q4P PRN 12/12 0945 AC 12/12 IV 1400 Hydromorphone HCl 0.5 MG Q4P PRN 12/12 0415 DC 12/12 IV 0841 Lactated Ringer's 1,000 ML Q6H 12/12 0415 AC 12/12 IV 2000 Morphine Sulfate 5 MG Q4 HRS NEEDED PRN 12/12 0845 DC IV Morphine Sulfate 6 MG ONCE ONE 12/12 0330 DC 12/12 IV 12/12 0331 0316 Morphine Sulfate 0 .STK-MED ONE 12/12 0306 DC .ROUTE Omeprazole 40 MG DAILY 12/12 1000 AC 12/12 PO 1135 Omeprazole 0 .STK-MED ONE 12/11 2329 DC PO Omeprazole 40 MG ONCE ONE 12/11 2315 DC 12/11 PO 12/11 231 2325 Ondansetron HCl 4 MG Q6P PRN 12/12 0415 AC IV Oxycodone HCl 10 MG Q6P PRN 12/12 0415 DC PO Pantoprazole Sodium 40 MG ONCE ONE 12/11 2315 CAN IV 12/11 2316 Patient Medication 1 ED .STK-MED ONE 12/12 1417 DC Teaching ED 12/12 1418 Sodium Chloride 1,000 ML ONCE ONE 12/12 0115 DC 12/12 IV 12/12 0754 0116 Chest: clear Cor: RRR, nl S1, S2 w/o murm Abd: BS+, soft, + epigastric tenderness w/o guarding/rebound Ext: no edema Labs: Laboratory Tests 12/12 12/12 0735 0152 Chemistry Sodium (137 - 145 mmol/L) 137 Potassium (3.5 - 5.1 mmol/L) 4.0 Chloride (98 - 107 mmol/L) 105 Carbon Dioxide (22 - 30 mmol/L) 24 Anion Gap (5 - 16) 9 BUN (9 - 20 mg/dL) 9 Creatinine (0.7 - 1.2 mg/dL) 0.8 Estimated GFR (>60 ml/min) > 60 BUN/Creatinine Ratio (7 - 25 %) 11.3 Total Bilirubin (0.2 - 1.3 mg/dL) 1.7 H Direct Bilirubin (< 0.4 mg/dL) 1.2 H AST (17 - 59 U/L) 462 H ALT (21 - 72 U/L) 694 H Alkaline Phosphatase (< 127 U/L) 220 H Troponin I (<0.11 ng/ml) < 0.01 Total Protein (6.3 - 8.2 g/dL) 6.1 L Albumin (3.5 - 5.0 g/dL) 3.3 L Lipase (23 - 300 U/L) 5787 H Hematology CBC w Diff NO MAN DIFF REQ WBC (4.8 - 10.8 /CUMM) 7.2 RBC (4.70 - 6.10 /CUMM) 4.39 L Hgb (14.0 - 18.0 G/DL) 12.4 L Hct (42 - 52 %) 36.5 L MCV (80.0 - 94.0 FL) 83.2 MCH (27.0 - 31.0 PG) 28.3 RDW (11.5 - 14.5 %) 14.0 Plt Count (130 - 400 /CUMM) 259 MPV (7.4 - 10.4 FL) 8.1 Gran % (42.2 - 75.2 %) 70.6 Lymphocytes % (20.5 - 51.1 %) 22.3 Monocytes % (1.7 - 9.3 %) 5.6 Eosinophils % (0 - 5 %) 1.2 Basophils % (0.0 - 2.0 %) 0.3 Absolute Granulocytes (1.4 - 6.5 /CUMM) 5.1 Absolute Lymphocytes (1.2 - 3.4 /CUMM) 1.6 Absolute Monocytes (0.10 - 0.60 /CUMM) 0.4 Absolute Eosinophils (0.0 - 0.7 /CUMM) 0.1 Absolute Basophils (0.0 - 0.2 /CUMM) 0 PUBS MCHC (33.0 - 37.0 G/DL) 34.0 12/12 12/11 0113 2329 Chemistry Sodium (137 - 145 mmol/L) 139 Potassium (3.5 - 5.1 mmol/L) 3.9 Chloride (98 - 107 mmol/L) 106 Carbon Dioxide (22 - 30 mmol/L) 25 Anion Gap (5 - 16) 9 BUN (9 - 20 mg/dL) 11 Creatinine (0.7 - 1.2 mg/dL) 0.8 Estimated GFR (>60 ml/min) > 60 BUN/Creatinine Ratio (7 - 25 %) 13.8 Glucose (65 - 99 mg/dL) 125 H Calcium (8.4 - 10.2 mg/dL) 8.4 Total Bilirubin (0.2 - 1.3 mg/dL) 1.5 H AST (17 - 59 U/L) 251 H ALT (21 - 72 U/L) 497 H Alkaline Phosphatase (< 127 U/L) 222 H Troponin I (<0.11 ng/ml) < 0.01 Total Protein (6.3 - 8.2 g/dL) 6.1 L Albumin (3.5 - 5.0 g/dL) 3.6 Globulin (1.9 - 4.2 gm/dL) 2.5 Albumin/Globulin Ratio (1.1 - 2.2 %) 1.4 Triglycerides (<150 mg/dL) 159 H Cholesterol (< 200 MG/DL) 205 H LDL Cholesterol, Calc (65 - 129 mg/dL) 128 HDL Cholesterol (40 - 60 mg/dL) 46 Cholesterol/HDL Ratio (0.00 - 4.88 %) 4 Lipase (23 - 300 U/L) 7340 H Hematology CBC w Diff NO MAN DIFF REQ WBC (4.8 - 10.8 /CUMM) 7.2 RBC (4.70 - 6.10 /CUMM) 4.47 L Hgb (14.0 - 18.0 G/DL) 12.4 L Hct (42 - 52 %) 37.2 L MCV (80.0 - 94.0 FL) 83.2 MCH (27.0 - 31.0 PG) 27.6 RDW (11.5 - 14.5 %) 14.0 Plt Count (130 - 400 /CUMM) 256 MPV (7.4 - 10.4 FL) 8.1 Gran % (42.2 - 75.2 %) 67.4 Lymphocytes % (20.5 - 51.1 %) 24.0 Monocytes % (1.7 - 9.3 %) 6.5 Eosinophils % (0 - 5 %) 1.7 Basophils % (0.0 - 2.0 %) 0.4 Absolute Granulocytes (1.4 - 6.5 /CUMM) 4.9 Absolute Lymphocytes (1.2 - 3.4 /CUMM) 1.7 Absolute Monocytes (0.10 - 0.60 /CUMM) 0.5 Absolute Eosinophils (0.0 - 0.7 /CUMM) 0.1 Absolute Basophils (0.0 - 0.2 /CUMM) 0 PUBS MCHC (33.0 - 37.0 G/DL) 33.2 Urines Urinalysis LIGHT H Urine Color (YEL,AMB,STR) YEL Urine Clarity (CLEAR) CLEAR Urine pH (5.0 - 8.0) 6.0 Ur Specific [place] (1.001 - 1.035) 1.025 Urine Protein (NEG,<30 MG/DL) NEG Urine Ketones (NEG) TRACE H Urine Nitrite (NEG) NEG Urine Bilirubin (NEG) POS@ICTO H Urine Urobilinogen (0.1 - 1.0 EU/dl) 1.0 Ur Leukocyte Esterase (NEG) TRACE H Ur Microscopic SEDIMENT EXAMINED Urine WBC (0 - 2 /HPF) 1-3 H Ur Epithelial Cells (NONE,FEW) MOD H Urine Bacteria (NEG/NONE) RARE H Urine Mucus (FEW,NONE) MOD H Urine Hemoglobin (NEG) NEG Urine Glucose (N MG/DL) NEG Impression/Plan: #Acute Pancreatitis- still suspect possible stone. Appreciate GI input. Plan: As per GI note- continue IV fluids and follow-up labe. ?MRCP if able to fit in MRI (will need to measure abdominal girth and check weight limit).
[2016-12-12 22:11] VITALS: BP 144/90
[2016-12-13 06:39] VITALS: BP 132/80
--- NOTE | 2016-12-13 08:38 | PN- Housestaff ---
CINDA ESTRADA,MORRIS 12/13/16 0838: Subjective Follow-up For: pancreatitis Subjective: Saw pt at bedside today. He stated that he was feeling well. His pain was 0-1. He was still nervous about advancing diet, but was tolerating thin liquids well. Plan is for MRCP vs US today for further evaluation of etiology of pancreatitis Review of Systems Constitutional: Reports: no symptoms. Objective Last 24 Hrs of Vital Signs/I&O Vital Signs Date Time Temp Pulse Resp B/P B/P Pulse O2 O2 Flow FiO2 Mean Ox Delivery Rate 12/13 1416 99.2 99 20 146/92 96 12/13 0639 99.1 81 20 132/80 96 Room Air 12/12 2211 98.6 69 20 144/90 95 Room Air Intake & Output 12/13 1600 12/13 0800 12/13 0000 Intake Total 5901 1600 1600 Output Total 600 1050 500 Balance 5301 550 1100 Intake, IV 1100 1600 1600 Intake, Oral 4801 Output, Urine 600 1050 500 Physical Exam General Appearance: Alert, Oriented X3, Cooperative, No Acute Distress HEENT: Atraumatic, PERRLA, EOMI Neck: Supple Cardiovascular: Regular Rate, Normal S1, Normal S2 Lungs: Clear to Auscultation Abdomen: Soft, No Tenderness Extremities: No Clubbing, No Cyanosis, No Edema Current Medications: Current Medications Sig/Angela Start time Last Medication Dose Route Stop Time Status Admin Acetaminophen 1,000 MG Q6P PRN 12/12 0845 AC N/A 1 UNIT IV Enoxaparin Sodium 40 MG DAILY 12/12 1000 AC 12/13 SC 0924 Hydromorphone HCl 0.6 MG Q4P PRN 12/12 0945 AC 12/12 IV 1400 Lactated Ringer's 1,000 ML Q6H 12/12 0415 AC 12/13 IV 1308 Omeprazole 40 MG DAILY 12/12 1000 AC 12/13 PO 0924 Ondansetron HCl 4 MG Q6P PRN 12/12 0415 AC IV Last 24 Hrs of Lab/Favio Results Last 24 Hrs of Labs/Mics: Laboratory Tests 12/13/16 0755: Anion Gap 7, Estimated GFR > 60, BUN/Creatinine Ratio 8.6, Total Bilirubin 1.1, Direct Bilirubin 0.3, AST 91 H, ALT 465 H, Alkaline Phosphatase 204 H, Total Protein 6.0 L, Albumin 3.4 L, PT 12.1, INR 1.15, CBC w Diff NO MAN DIFF REQ, RBC 4.43 L, MCV 82.9, MCH 28.1, RDW 14.2, MPV 8.2, Gran % 73.4, Lymphocytes % 19.1 L, Monocytes % 5.6, Eosinophils % 1.7, Basophils % 0.2, Absolute Granulocytes 6.6 H, Absolute Lymphocytes 1.7, Absolute Monocytes 0.5, Absolute Eosinophils 0.2, Absolute Basophils 0, PUBS MCHC 33.9, Hepatitis A IgM Ab NONREACTIVE, Hep Bs Antigen NONREACTIVE, Hep B Core IgM Ab Conf NONREACTIVE, Hepatitis C Antibody NONREACTIVE Assessment/Plan Assessment: This is a 41-year-old male past medical history of morbid obesity, diverticulosis who comes in for chief complaint of epigastric pain. Upon evaluation patient was found to have lipase 7340, with radiographic evidence of and a subsequent diagnosis of pancreatitis. CT ABD IMPRESSION: Diverticulosis. No evidence of diverticulitis. 1.3 cm low-attenuation lesion in the lower pole of the right kidney not compatible with a simple cyst. Follow-up ultrasound is recommended. Fatty infiltration of the pancreas. Unremarkable gallbladder by CT. PLAN 1. Pancreatitis: Patient came in with lipase 7340; the pancreas was not visible due to body habitus on imaging. However given that patient has typical pain and elevated lipase he meets criteria for pancreatitis. Today his lipase is 5787. As it is trending down we will stop checking * Advance diet as tolerated * Today fluids were decreased from 200 mL of lactated Ringer's to 100 mL of lactated Ringer's * Pain control with opiates * Protonix 40 mg IV daily * Plan is for MRCP tomorrow at [facility]. Patient's abdominal girth is 178 cm/ 71 inches. [facility] MRI is only compatible with 60 cm girth. His AP diameter is 28 cm or around 11 inches. This allows him to be compatible at [facility] MRI. We will keep patient nothing by mouth in anticipation of MRCP. * Patient had repeat ultrasound of abdomen this a.m. Follow-up results. 2. Transaminitis: On admission AST 251, ALT 497, alkaline phosphatase 222. There is consideration for gallstone etiology of pancreatitis. If evidence of sludging he will need cholecystectomy. Today AST 91, ALT 465, alkaline phosphatase 204. 3. Kidney Incidentaloma: Per CT-1.3 cm low-attenuation lesion in the lower pole of the right kidney not compatible with a simple cyst. * Out patient follow up with US will be necessary Problem List: 1. Upper abdominal pain, unspecified 2. Pancreatitis Pain Ratin Pain Location: none Pain Goal: Remain pain free Pain Plan: none Tomorrow's Labs & Rationales: cbc bep LIZY SHAFFER MD 12/13/163: Attending MD Review Statement Attending Statement Attending MD Statement: examined this patient, discuss w/resident/PA/EMPLOYMENT OFFICE CLERK, agreed w/resident/PA/EMPLOYMENT OFFICE CLERK, discussed with family, reviewed EMR data (avail), discussed with nursing, discussed with case mgmt, reviewed images, amended to note Attending Assessment/Plan: The patient was seen and discussed with house staff. Appreciate GI input. Repeat US showing gallstone in GB and CBC slightly dilated. Will need MRCP and will obtain at [facility] tomorrow which is able to take the patient's weight and girth (AP measurement < 17'). Surgical consult called (bariatric surgery) regarding laparoscopic cholecystectomy. May do intraoperative cholangiogram or ERCP afterwards. Await surgical input.
--- NOTE | 2016-12-13 08:40 | Event Note ---
See Addendum Event Note Event Note: Spoke with air launch weapons technician regarding if pt is candidate for MRCP. MRI allows 60 cm girth and 440 lb limit, stretcher limit of 400 lbs. Pt is 398 lbs and with girth greater than 60cm. Will proceed with US.
[2016-12-13 08:55] LABS: PT 12.1 SEC (9.4-12.5)
[2016-12-13 09:02] LABS: ABSOLUTE BASOPHIL COUNT 0 /CUMM (0.0-0.2); ABSOLUTE EOSINOPHIL COUNT 0.2 /CUMM (0.0-0.7); ABSOLUTE GRANULOCYTE CT 6.6 /CUMM (1.4-6.5); ABSOLUTE LYMPH COUNT 1.7 /CUMM (1.2-3.4); ABSOLUTE MONOCYTE COUNT 0.5 /CUMM (0.10-0.60); BASOPHIL % 0.2 % (0.0-2.0); EOSINOPHIL % 1.7 % (0-5); GRANULOCYTE % 73.4 % (42.2-75.2); HEMATOCRIT 36.7 % (42-52); MEAN CORPUSCULAR HGB 28.1 PG (27.0-31.0); MEAN CORPUSCULAR HGB CONC 33.9 G/DL (33.0-37.0); MEAN CORPUSCULAR VOLUME 82.9 FL (80.0-94.0); MEAN PLATELET VOLUME 8.2 FL (7.4-10.4); PLATELET COUNT 263 /CUMM (130-400); RBC DISTRIBUTION WIDTH 14.2 % (11.5-14.5); RED BLOOD CELL CT 4.43 /CUMM (4.70-6.10)
[2016-12-13 14:16] VITALS: BP 146/92
--- NOTE | 2016-12-13 16:56 | ULTRASOUND REPORT ---
EXAMINATION: US ABDOMEN LIMITED CLINICAL INFORMATION: Pancreatitis. Patient requires ultrasound of liver and gallbladder. Need to visualize the bile ducts specifically. COMPARISON: CT scan of the abdomen and pelvis dated 12/10/2016 and ultrasound of the right upper quadrant dated 12/10/2016. TECHNIQUE: Real-time imaging of the right upper quadrant abdominal viscera. FINDINGS: Evaluation is limited due to the patient's body habitus. PANCREAS: Not seen. LIVER: Limited assessment. Liver appears diffusely heterogeneous, consistent with hepatic steatosis. This limits sound beam penetration. The liver demonstrates normal size and contour. No focal lesion or intrahepatic biliary duct dilatation appreciated. GALLBLADDER: There are several large shadowing and calcified gallstones seen within the gallbladder, extending into the gallbladder neck. No gallbladder wall thickening, sonographic Obregon's sign or pericholecystic fluid. COMMON BILE DUCT: Poorly visualized with only a small segment seen, measuring approximately 0.8 cm in diameter. RIGHT KIDNEY: Poorly visualized. No hydronephrosis. Evaluation is not satisfactory to assess for renal calculi or focal parenchymal lesions. The kidney measures 13.1 cm in maximum dimension. FREE FLUID: None. IMPRESSION: Limited study. 1. Calcified gallstones are seen within the gallbladder extending into the gallbladder neck. No other secondary imaging features of acute cholecystitis are seen. Clinical correlation requested. 2. Small segment of the common bile duct is visualized and appears abnormally distended, measuring 0.8 cm in diameter. 3. Pancreas is not seen. 4. Hepatic steatosis.
--- NOTE | 2016-12-13 17:00 | PN- Gastroenterology ---
Assessment/Plan Assessment/Recommendations: Gallstone pancreatitis, clinically resolved. Bilirubin normalized, other liver function tests improved. Optimal management would include cholecystectomy during this hospitalization. Recommendations * Surgical consultation for cholecystectomy. The case has been discussed with Dr. Manning, and his group will become involved. The patient wishes to have surgery here at [place]. * Preoperative MRCP to assess for residual choledocholithiasis, if it can be obtained at the [facility] facility. Given resolution in symptoms and improvement in LFTs, would not proceed directly to ERCP. Intraoperative cholangiogram would be another option (especially with further improvement in LFTs), but defer to surgery. * Follow-up LFTs including alkaline phosphatase, in the morning. Subjective Subjective: Abdominal pain has resolved. He feels bloated. There's been no nausea nor fever. Review of Systems: Without change Objective Vital Signs and I&Os Vital Signs Date Time Temp Pulse Resp B/P B/P Pulse O2 O2 Flow FiO2 Mean Ox Delivery Rate 12/13 1416 99.2 99 20 146/92 96 12/13 0639 99.1 81 20 132/80 96 Room Air 12/12 2211 98.6 69 20 144/90 95 Room Air Intake & Output 12/13 1600 12/13 0400 12/12 1600 12/12 0400 12/11 1600 12/11 0400 Intake Total 7501 1600 2050 Output Total 1100 1050 1300 Balance 6401 550 750 Intake, IV 2700 1600 2000 Intake, Oral 4801 50 Number 1 Bowel Movements Output, Urine 1100 1050 1300 Patient 400 lb Weight Weight Reported by Patient Measurement Method Physical Exam: Sclera anicteric. Abdomen obese, soft, nontender. No edema. Results Pertinent Lab Results: Laboratory Tests 12/13 12/12 0755 0735 Chemistry Sodium (137 - 145 mmol/L) 138 137 Potassium (3.5 - 5.1 mmol/L) 4.0 4.0 Chloride (98 - 107 mmol/L) 105 105 Carbon Dioxide (22 - 30 mmol/L) 26 24 Anion Gap (5 - 16) 7 9 BUN (9 - 20 mg/dL) 6 L 9 Creatinine (0.7 - 1.2 mg/dL) 0.7 0.8 Estimated GFR (>60 ml/min) > 60 > 60 BUN/Creatinine Ratio (7 - 25 %) 8.6 11.3 Total Bilirubin (0.2 - 1.3 mg/dL) 1.1 1.7 H Direct Bilirubin (< 0.4 mg/dL) 0.3 1.2 H AST (17 - 59 U/L) 91 H 462 H ALT (21 - 72 U/L) 465 H 694 H Alkaline Phosphatase (< 127 U/L) 204 H 220 H Total Protein (6.3 - 8.2 g/dL) 6.0 L 6.1 L Albumin (3.5 - 5.0 g/dL) 3.4 L 3.3 L Lipase (23 - 300 U/L) 5787 H Coagulation PT (9.4 - 12.5 SEC) 12.1 INR (0.90 - 1.17) 1.15 Hematology CBC w Diff NO MAN DIFF REQ NO MAN DIFF REQ WBC (4.8 - 10.8 /CUMM) 9.0 7.2 RBC (4.70 - 6.10 /CUMM) 4.43 L 4.39 L Hgb (14.0 - 18.0 G/DL) 12.4 L 12.4 L Hct (42 - 52 %) 36.7 L 36.5 L MCV (80.0 - 94.0 FL) 82.9 83.2 MCH (27.0 - 31.0 PG) 28.1 28.3 RDW (11.5 - 14.5 %) 14.2 14.0 Plt Count (130 - 400 /CUMM) 263 259 MPV (7.4 - 10.4 FL) 8.2 8.1 Gran % (42.2 - 75.2 %) 73.4 70.6 Lymphocytes % (20.5 - 51.1 %) 19.1 L 22.3 Monocytes % (1.7 - 9.3 %) 5.6 5.6 Eosinophils % (0 - 5 %) 1.7 1.2 Basophils % (0.0 - 2.0 %) 0.2 0.3 Absolute Granulocytes (1.4 - 6.5 /CUMM) 6.6 H 5.1 Absolute Lymphocytes (1.2 - 3.4 /CUMM) 1.7 1.6 Absolute Monocytes (0.10 - 0.60 /CUMM) 0.5 0.4 Absolute Eosinophils (0.0 - 0.7 /CUMM) 0.2 0.1 Absolute Basophils (0.0 - 0.2 /CUMM) 0 0 PUBS MCHC (33.0 - 37.0 G/DL) 33.9 34.0 Serology Hepatitis A IgM Ab (NONREACTIVE) NONREACTIVE Hep Bs Antigen (NONREACTIVE) NONREACTIVE Hep B Core IgM Ab Conf (NONREACTIVE) NONREACTIVE Hepatitis C Antibody (NONREACTIVE) NONREACTIVE 12/12 12/12 0152 0113 Chemistry Troponin I (<0.11 ng/ml) < 0.01 Urines Urinalysis LIGHT H Urine Color (YEL,AMB,STR) YEL Urine Clarity (CLEAR) CLEAR Urine pH (5.0 - 8.0) 6.0 Ur Specific [place] (1.001 - 1.035) 1.025 Urine Protein (NEG,<30 MG/DL) NEG Urine Ketones (NEG) TRACE H Urine Nitrite (NEG) NEG Urine Bilirubin (NEG) POS@ICTO H Urine Urobilinogen (0.1 - 1.0 EU/dl) 1.0 Ur Leukocyte Esterase (NEG) TRACE H Ur Microscopic SEDIMENT EXAMINED Urine WBC (0 - 2 /HPF) 1-3 H Ur Epithelial Cells (NONE,FEW) MOD H Urine Bacteria (NEG/NONE) RARE H Urine Mucus (FEW,NONE) MOD H Urine Hemoglobin (NEG) NEG Urine Glucose (N MG/DL) NEG 12/11 2329 Chemistry Sodium (137 - 145 mmol/L) 139 Potassium (3.5 - 5.1 mmol/L) 3.9 Chloride (98 - 107 mmol/L) 106 Carbon Dioxide (22 - 30 mmol/L) 25 Anion Gap (5 - 16) 9 BUN (9 - 20 mg/dL) 11 Creatinine (0.7 - 1.2 mg/dL) 0.8 Estimated GFR (>60 ml/min) > 60 BUN/Creatinine Ratio (7 - 25 %) 13.8 Glucose (65 - 99 mg/dL) 125 H Calcium (8.4 - 10.2 mg/dL) 8.4 Total Bilirubin (0.2 - 1.3 mg/dL) 1.5 H AST (17 - 59 U/L) 251 H ALT (21 - 72 U/L) 497 H Alkaline Phosphatase (< 127 U/L) 222 H Troponin I (<0.11 ng/ml) < 0.01 Total Protein (6.3 - 8.2 g/dL) 6.1 L Albumin (3.5 - 5.0 g/dL) 3.6 Globulin (1.9 - 4.2 gm/dL) 2.5 Albumin/Globulin Ratio (1.1 - 2.2 %) 1.4 Triglycerides (<150 mg/dL) 159 H Cholesterol (< 200 MG/DL) 205 H LDL Cholesterol, Calc (65 - 129 mg/dL) 128 HDL Cholesterol (40 - 60 mg/dL) 46 Cholesterol/HDL Ratio (0.00 - 4.88 %) 4 Lipase (23 - 300 U/L) 7340 H Hematology CBC w Diff NO MAN DIFF REQ WBC (4.8 - 10.8 /CUMM) 7.2 RBC (4.70 - 6.10 /CUMM) 4.47 L Hgb (14.0 - 18.0 G/DL) 12.4 L Hct (42 - 52 %) 37.2 L MCV (80.0 - 94.0 FL) 83.2 MCH (27.0 - 31.0 PG) 27.6 RDW (11.5 - 14.5 %) 14.0 Plt Count (130 - 400 /CUMM) 256 MPV (7.4 - 10.4 FL) 8.1 Gran % (42.2 - 75.2 %) 67.4 Lymphocytes % (20.5 - 51.1 %) 24.0 Monocytes % (1.7 - 9.3 %) 6.5 Eosinophils % (0 - 5 %) 1.7 Basophils % (0.0 - 2.0 %) 0.4 Absolute Granulocytes (1.4 - 6.5 /CUMM) 4.9 Absolute Lymphocytes (1.2 - 3.4 /CUMM) 1.7 Absolute Monocytes (0.10 - 0.60 /CUMM) 0.5 Absolute Eosinophils (0.0 - 0.7 /CUMM) 0.1 Absolute Basophils (0.0 - 0.2 /CUMM) 0 PUBS MCHC (33.0 - 37.0 G/DL) 33.2 Imaging/Other Studies: Ultrasound demonstrates gallstones, and a CBD of 8 mm.
--- NOTE | 2016-12-13 21:44 | PN- General Surgery ---
Surgical Brief Attending Note Brief Attending Note: pt seen and examined and history and images reveiwed Does appear to be a gallstone pancreatitis that is improving pt has a very high BMI and a laparoscopic cholecystectomy may be very technically challenging, as well as a potential ERCP which could be difficult. i do agree that if possible an MRCP if feasable may be harrison to make sure the CBD is clear. If enzymes and pt continues to improve will plan on Lap angely possibly Sunday
[2016-12-13 23:04] VITALS: BP 132/90
[2016-12-14 06:53] VITALS: BP 126/80
--- NOTE | 2016-12-14 07:05 | PN- Housestaff ---
See Addendum Subjective Follow-up For: Acute pancreatitis Complaints: bloated sensation, on/off Subjective: I followed up and examined the patient today. He is resting comfortably in his bed, is not in distress, and the only complaint he has is mild bloating sensation on and off, is currently NPO pending MRI/MRCP today. Vitals have remained stable, IV fluid Ringer's lactate wearing at 100 mL per hour. He was in clear liquid diet yesterday. Review of Systems Constitutional: Reports: see HPI. Objective Last 24 Hrs of Vital Signs/I&O Vital Signs Date Time Temp Pulse Resp B/P B/P Pulse O2 O2 Flow FiO2 Mean Ox Delivery Rate 12/14 0653 99.3 75 20 126/80 95 Room Air 12/13 2304 98.7 84 20 132/90 93 Room Air 12/13 1416 99.2 99 20 146/92 96 Intake & Output 12/14 1600 12/14 0800 12/14 0000 Intake Total 800 800 Output Total 320 Balance 800 480 Intake, IV 800 800 Output, Urine 320 Physical Exam General Appearance: Alert, Oriented X3, Cooperative, No Acute Distress, morbidly obese Other Physical Findings: HEENT: Atraumatic, PERRLA, EOMI Neck: Supple Cardiovascular: Regular Rate, Normal S1, Normal S2 Lungs: Clear to Auscultation Abdomen: Soft, No Tenderness Extremities: No Clubbing, No Cyanosis, No Edema Current Medications: Current Medications Sig/Angela Start time Last Medication Dose Route Stop Time Status Admin Acetaminophen 1,000 MG Q6P PRN 12/12 0845 AC N/A 1 UNIT IV Enoxaparin Sodium 40 MG DAILY 12/12 1000 AC 12/13 SC 0924 Hydromorphone HCl 0.6 MG Q4P PRN 12/12 0945 AC 12/12 IV 1400 Lactated Ringer's 1,000 ML Q6H 12/12 0415 AC 12/14 IV 0811 Omeprazole 40 MG DAILY 12/12 1000 AC 12/13 PO 0924 Ondansetron HCl 4 MG Q6P PRN 12/12 0415 AC IV Last 24 Hrs of Lab/Favio Results Last 24 Hrs of Labs/Mics: Laboratory Tests 12/14/16 0650: Anion Gap 8, Estimated GFR > 60, BUN/Creatinine Ratio 8.6, Total Bilirubin 1.1, Direct Bilirubin 0.3, AST 35, ALT 292 H, Alkaline Phosphatase 169 H, Total Protein 5.8 L, Albumin 3.2 L, CBC w Diff NO MAN DIFF REQ, RBC 4.12 L, MCV 82.5, MCH 28.0, RDW 14.0, MPV 8.1, Gran % 73.2, Lymphocytes % 17.3 L, Monocytes % 7.1, Eosinophils % 2.2, Basophils % 0.2, Absolute Granulocytes 7.4 H, Absolute Lymphocytes 1.8, Absolute Monocytes 0.7 H, Absolute Eosinophils 0.2, Absolute Basophils 0, PUBS MCHC 33.9 Assessment/Plan Assessment: This is a 41-year-old male past medical history of morbid obesity, diverticulosis who comes in for chief complaint of epigastric pain. Upon evaluation patient was found to have lipase 7340, with radiographic evidence of and a subsequent diagnosis of pancreatitis. CT ABD IMPRESSION: Diverticulosis. No evidence of diverticulitis. 1.3 cm low-attenuation lesion in the lower pole of the right kidney not compatible with a simple cyst. Follow-up ultrasound is recommended. Fatty infiltration of the pancreas. Unremarkable gallbladder by CT. PLAN # Pancreatitis: Patient came in with lipase 7340; the pancreas was not visible due to body habitus on imaging. However given that patient has typical pain and elevated lipase he meets criteria for pancreatitis. Repeat lipase was 5787. Not checking anymore. * Advance diet as tolerated * IV fluid to continue at 100 mL/hr of Ringer's lactate. * Pain control with opiates * Protonix 40 mg IV daily * Due to body habitus, patient could not fit into the MRI machine off IV Protonix either, thus MRCP was canceled for today. * Patient to remain nothing by mouth from midnight home anticipating cholecystectomy tomorrow. # Transaminitis: On admission AST 251, ALT 497, alkaline phosphatase 222. There is consideration for gallstone etiology of pancreatitis. If evidence of sludging he will need cholecystectomy. Today AST 35, ALT 292, alkaline phosphatase 169. Decreasing trend. #Kidney Incidentaloma: Per CT-1.3 cm low-attenuation lesion in the lower pole of the right kidney not compatible with a simple cyst. * Out patient follow up with US will be necessary #Morbid obesity Patient has been counseled about obesity, and will need further management as an outpatient basis. #Diet: Clear liquid #DVT ppx: SQ Lovenox #Code status: Full code Problem List: 1. Pancreatitis Pain Ratin Pain Location: epigastrium, when present, now resolving Pain Goal: Pain 4 or less Pain Plan: prn as now Tomorrow's Labs & Rationales: CBC, BEP, LFT, INR, amylase, lipase
[2016-12-14 07:57] LABS: ABSOLUTE BASOPHIL COUNT 0 /CUMM (0.0-0.2); ABSOLUTE EOSINOPHIL COUNT 0.2 /CUMM (0.0-0.7); ABSOLUTE GRANULOCYTE CT 7.4 /CUMM (1.4-6.5); ABSOLUTE LYMPH COUNT 1.8 /CUMM (1.2-3.4); ABSOLUTE MONOCYTE COUNT 0.7 /CUMM (0.10-0.60); BASOPHIL % 0.2 % (0.0-2.0); EOSINOPHIL % 2.2 % (0-5); GRANULOCYTE % 73.2 % (42.2-75.2); MEAN CORPUSCULAR HGB CONC 33.9 G/DL (33.0-37.0); MEAN CORPUSCULAR VOLUME 82.5 FL (80.0-94.0); MEAN PLATELET VOLUME 8.1 FL (7.4-10.4); PLATELET COUNT 241 /CUMM (130-400); RED BLOOD CELL CT 4.12 /CUMM (4.70-6.10); WHITE BLOOD CELL COUNT 10.1 /CUMM (4.8-10.8)
[2016-12-14 14:15] VITALS: BP 100/70
--- NOTE | 2016-12-14 16:34 | PN- General Surgery ---
See Addendum Subjective Subjective: Patient has not had pain for the last day and a half, he is comfortable, no fever no nausea no vomiting. He was scheduled to have an MRCP today however he did not fit in the MRI machine due to his excessive body habitus Objective Vital Signs and I&Os Vital Signs Date Time Temp Pulse Resp B/P B/P Pulse O2 O2 Flow FiO2 Mean Ox Delivery Rate 12/14 1415 98.4 84 20 100/70 97 Room Air 12/14 0653 99.3 75 20 126/80 95 Room Air 12/13 2304 98.7 84 20 132/90 93 Room Air Intake & Output 12/14 1600 12/14 0800 12/14 0000 12/13 1600 12/13 0800 12/13 0000 Intake Total 800 531 362 3542 1600 1600 Output Total 805 873 6459 500 Balance 800 817 486 5655 550 1100 Intake, IV 800 731 045 3991 1600 1600 Intake, Oral 4801 Output, Urine 181 302 9251 500 Patient 500 lb Weight Weight Standing Scale Measurement Method Physical Exam: Well-developed well-nourished no apparent distress. HEENT: Atraumatic, extraocular motion intact Neck: Supple, no lymphadenopathy Respiratory: No respiratory distress Abdomen: Obese. Soft, nontender nondistended Extremities: No edema, no calf pain Neuro: Alert and oriented x3 Psych: Mood affect normal, normal memory normal judgment. Skin: Warm and dry, no rash on exposed skin Results Last 48 Hours of Labs: Laboratory Tests 12/14 12/13 0650 0755 Chemistry Sodium (137 - 145 mmol/L) 137 138 Potassium (3.5 - 5.1 mmol/L) 3.9 4.0 Chloride (98 - 107 mmol/L) 104 105 Carbon Dioxide (22 - 30 mmol/L) 25 26 Anion Gap (5 - 16) 8 7 BUN (9 - 20 mg/dL) 6 L 6 L Creatinine (0.7 - 1.2 mg/dL) 0.7 0.7 Estimated GFR (>60 ml/min) > 60 > 60 BUN/Creatinine Ratio (7 - 25 %) 8.6 8.6 Total Bilirubin (0.2 - 1.3 mg/dL) 1.1 1.1 Direct Bilirubin (< 0.4 mg/dL) 0.3 0.3 AST (17 - 59 U/L) 35 91 H ALT (21 - 72 U/L) 292 H 465 H Alkaline Phosphatase (< 127 U/L) 169 H 204 H Total Protein (6.3 - 8.2 g/dL) 5.8 L 6.0 L Albumin (3.5 - 5.0 g/dL) 3.2 L 3.4 L Coagulation PT (9.4 - 12.5 SEC) 12.1 INR (0.90 - 1.17) 1.15 Hematology CBC w Diff NO MAN DIFF REQ NO MAN DIFF REQ WBC (4.8 - 10.8 /CUMM) 10.1 9.0 RBC (4.70 - 6.10 /CUMM) 4.12 L 4.43 L Hgb (14.0 - 18.0 G/DL) 11.5 L 12.4 L Hct (42 - 52 %) 34.0 L 36.7 L MCV (80.0 - 94.0 FL) 82.5 82.9 MCH (27.0 - 31.0 PG) 28.0 28.1 RDW (11.5 - 14.5 %) 14.0 14.2 Plt Count (130 - 400 /CUMM) 241 263 MPV (7.4 - 10.4 FL) 8.1 8.2 Gran % (42.2 - 75.2 %) 73.2 73.4 Lymphocytes % (20.5 - 51.1 %) 17.3 L 19.1 L Monocytes % (1.7 - 9.3 %) 7.1 5.6 Eosinophils % (0 - 5 %) 2.2 1.7 Basophils % (0.0 - 2.0 %) 0.2 0.2 Absolute Granulocytes (1.4 - 6.5 /CUMM) 7.4 H 6.6 H Absolute Lymphocytes (1.2 - 3.4 /CUMM) 1.8 1.7 Absolute Monocytes (0.10 - 0.60 /CUMM) 0.7 H 0.5 Absolute Eosinophils (0.0 - 0.7 /CUMM) 0.2 0.2 Absolute Basophils (0.0 - 0.2 /CUMM) 0 0 PUBS MCHC (33.0 - 37.0 G/DL) 33.9 33.9 Serology Hepatitis A IgM Ab (NONREACTIVE) NONREACTIVE Hep Bs Antigen (NONREACTIVE) NONREACTIVE Hep B Core IgM Ab Conf (NONREACTIVE) NONREACTIVE Hepatitis C Antibody (NONREACTIVE) NONREACTIVE Assessment/Plan Assessment/Plan Gallstone pancreatitis, resolving. Discussed with Dr. Christiano Quiñones, recommend clear diet tonight, nothing by mouth after midnight, recheck LFTs amylase lipase tomorrow, if trending down, will plan for laparoscopic cholecystectomy tomorrow afternoon.
[2016-12-14 22:35] VITALS: BP 152/86
[2016-12-15 06:59] VITALS: BP 150/82
--- NOTE | 2016-12-15 07:33 | PN- Housestaff ---
JAGRUTI ESTRADA,LAUREEN 12/15/16 0733: Subjective Follow-up For: Acute pancreatitis Complaints: no complaints Subjective: I followed up and examined the patient today. He is resting comfortably in his bed, not in distress, does not offer any complaints. He has been kept nothing by mouth since midnight, anticipating surgery today, IV fluid running at 100 mL per hour. Of note, he could not get MRI done yesterday due to the body habitus and the machine mismatch. Review of Systems Constitutional: Reports: no symptoms. Objective Last 24 Hrs of Vital Signs/I&O Vital Signs Date Time Temp Pulse Resp B/P B/P Pulse O2 O2 Flow FiO2 Mean Ox Delivery Rate 12/15 1039 99.2 84 16 150/90 95 Room Air 12/15 0659 98.6 72 20 150/82 95 Room Air 12/15 0000 96 Room Air 12/14 2235 98.6 86 20 152/86 96 Room Air 12/14 1415 98.4 84 20 100/70 97 Room Air Intake & Output 12/15 1600 12/15 0800 12/15 0000 Intake Total 800 120 Output Total Balance 800 120 Intake, IV 800 Intake, Oral 0 120 Number 0 Bowel Movements Physical Exam General Appearance: Alert, Oriented X3, Cooperative, No Acute Distress, morbidly obese Other Physical Findings: HEENT: Atraumatic, PERRLA, EOMI Neck: Supple Cardiovascular: Regular Rate, Normal S1, Normal S2 Lungs: Clear to Auscultation Abdomen: Soft, No Tenderness Extremities: No Clubbing, No Cyanosis, No Edema Current Medications: Current Medications Sig/Angela Start time Last Medication Dose Route Stop Time Status Admin Acetaminophen 1,000 MG Q6P PRN 12/12 0845 AC N/A 1 UNIT IV Enoxaparin Sodium 40 MG DAILY 12/12 1000 AC 12/14 SC 0931 Hydromorphone HCl 0.6 MG Q4P PRN 12/12 0945 AC 12/12 IV 1400 Lactated Ringer's 1,000 ML Q10H 12/15 0000 AC 12/15 IV 0914 Lactated Ringer's 1,000 ML Q6H 12/14 1345 DC IV Omeprazole 40 MG DAILY 12/12 1000 AC 12/15 PO 0808 Ondansetron HCl 4 MG Q6P PRN 12/12 0415 AC IV Patient Medication 1 ED .STK-MED ONE 12/14 1412 [facility] 12/14 1413 Last 24 Hrs of Lab/Favio Results Last 24 Hrs of Labs/Mics: Laboratory Tests 12/15/16 0635: Anion Gap 9, Estimated GFR > 60, BUN/Creatinine Ratio 10.0, Total Bilirubin 1.1, Direct Bilirubin 0.4, AST 22, ALT 196 H, Alkaline Phosphatase 145 H, Total Protein 5.8 L, Albumin 3.1 L, Amylase < 30 L, Lipase 59, PT 12.9 H, INR 1.23 H, CBC w Diff NO MAN DIFF REQ, RBC 4.19 L, MCV 83.6, MCH 28.2, RDW 13.9, MPV 8.3, Gran % 72.1, Lymphocytes % 18.4 L, Monocytes % 6.2, Eosinophils % 3.1, Basophils % 0.2, Absolute Granulocytes 6.7 H, Absolute Lymphocytes 1.7, Absolute Monocytes 0.6, Absolute Eosinophils 0.3, Absolute Basophils 0, PUBS MCHC 33.8 Assessment/Plan Assessment: Mr Underwood is a 41-year-old male past medical history of morbid obesity, diverticulosis who comes in for chief complaint of epigastric pain. Upon evaluation patient was found to have lipase 7340, with radiographic evidence of and a subsequent diagnosis of pancreatitis. CT ABD IMPRESSION: Diverticulosis. No evidence of diverticulitis. 1.3 cm low-attenuation lesion in the lower pole of the right kidney not compatible with a simple cyst. Follow-up ultrasound is recommended. Fatty infiltration of the pancreas. Unremarkable gallbladder by CT. PLAN # Acute Pancreatitis: Patient came in with lipase 7340; the pancreas was not visible due to body habitus on imaging. However given that patient has typical pain and elevated lipase he meets criteria for pancreatitis. Repeat lipase was 5787. Not checking anymore. * NPO since midnight for the surgery (cholecystectomy) today. * Continue IV fluid at 100 mL/hr of Ringer's lactate until then. * To advance diet after the surgery as tolerate. * Pain control with opiates * Continue Protonix 40 mg IV daily, need to change to PO form soon. Reassess tomorrow. * MRCP could not be done yesterday (see progress notes from yesterday), but patient might get an intraoperative cholangiogram and/or CBD exploration/ ERCP accordingly. # Transaminitis: On admission AST 251, ALT 497, alkaline phosphatase 222. There is consideration for gallstone etiology of pancreatitis. Today AST 22, ALT 196, alkaline phosphatase 145. Decreasing trend. #Kidney Incidentaloma: Per CT-1.3 cm low-attenuation lesion in the lower pole of the right kidney not compatible with a simple cyst. * Out patient follow up with US will be necessary. #Morbid obesity: Patient has been counseled about obesity, and will need further management as an outpatient basis. #Diet: Clear liquid #DVT ppx: SQ Lovenox #Code status: Full code Problem List: 1. Pancreatitis Pain Ratin Pain Location: - Pain Goal: Pain 4 or less Pain Plan: prn Tomorrow's Labs & Rationales: CBC, BEP, Mg, LFT LIZY SHAFFER MD 12/15/16 1305: Attending MD Review Statement Attending Statement Attending MD Statement: examined this patient, discuss w/resident/PA/TWISTER HAND, agreed w/resident/PA/TWISTER HAND, reviewed EMR data (avail), discussed with nursing, discussed with case mgmt, amended to note Attending Assessment/Plan: The patient was seen and discussed with house staff. Agree with the plan as outlined. To go to OR for cholecystectomy (hopefully laparoscopic) this afternoon. May need ERCP. afternoon. May need ERCP.
[2016-12-15 08:30] LABS: PT 12.9 SEC (9.4-12.5)
[2016-12-15 08:36] LABS: ABSOLUTE BASOPHIL COUNT 0 /CUMM (0.0-0.2); ABSOLUTE EOSINOPHIL COUNT 0.3 /CUMM (0.0-0.7); ABSOLUTE GRANULOCYTE CT 6.7 /CUMM (1.4-6.5); ABSOLUTE LYMPH COUNT 1.7 /CUMM (1.2-3.4); ABSOLUTE MONOCYTE COUNT 0.6 /CUMM (0.10-0.60); BASOPHIL % 0.2 % (0.0-2.0); EOSINOPHIL % 3.1 % (0-5); GRANULOCYTE % 72.1 % (42.2-75.2); MEAN CORPUSCULAR HGB 28.2 PG (27.0-31.0); MEAN CORPUSCULAR HGB CONC 33.8 G/DL (33.0-37.0); MEAN CORPUSCULAR VOLUME 83.6 FL (80.0-94.0); MEAN PLATELET VOLUME 8.3 FL (7.4-10.4); PLATELET COUNT 242 /CUMM (130-400); RBC DISTRIBUTION WIDTH 13.9 % (11.5-14.5); RED BLOOD CELL CT 4.19 /CUMM (4.70-6.10); WHITE BLOOD CELL COUNT 9.3 /CUMM (4.8-10.8)
[2016-12-15 10:39] VITALS: BP 150/90
[2016-12-15 14:02] VITALS: BP 140/84
--- NOTE | 2016-12-15 14:10 | NUR ---
PT TAKEN VIA STRETCHER TO OR. CELL PHONE X 2 AND HANDICRAFT OR HOBBY SHOP MANAGER X 2 LOCKED IN MED CABINET PER PT'S REQUEST WHILE IN SURGERY.
--- NOTE | 2016-12-15 16:38 | Operative Report ---
Operative/Inv Procedure Report Surgery Date: 12/15/16 Name of Procedure: laparoscopic cholecystectomy Pre-Operative Diagnosis: cholelithiasis, choledocholithiasis gallstone pancreatitis Post-Operative Diagnosis: same Estimated Blood Loss: less than 50ml Surgeon/Chromosomal Disorders Counselor: Christiano Garcia PA-C Anesthesia: general endotracheal tube IV Fluids: LR Urine Output: n/a Drains: none Specimens: gallbladder and stones Complications: none Condition: stable Operative/Procedure Note Note: After informed consent and proper identification the patient was taken the operating room and placed on the operating room in the supine position Venodyne stockings were applied and underwent a general endotracheal anesthetic abdomen was prepped and draped in normal sterile fashion treated patient's obesity we entered the abdominal cavity with a 5 mm Stortz 0 laparoscope and a 5 mm Visiport in the left upper quadrant without difficulty and insufflated the abdomen with 14 mm of CO2 pressure. Given the patient's long abdomen we placed the camera in the midline between the umbilicus and the xiphoid by placing a 12 mm Visiport under direct visualization in the midline. We then placed additional 5 mm ports 2 in the right subcostal margin and one in the upper midline the gallbladder was elevated by grabbing the fundus we could not push it completely up over the liver edge due to the fatty liver the obesity and the thick omentum. With a sponge placed in the abdominal cavity from the initial 5 mm Visiport insertion site we used a retractor to retract the omentum inferiorly after placing the patient in reverse Trendelenburg with a combination of blunt and sharp dissection and cautery we were able to take the omental adhesions off the fundus and infundibulum of the gallbladder and pulled the infundibulum laterally and exposed the cystic duct and artery we surrounded the cystic duct and artery with the curved dissector and placed 35 mm clips proximally on the cystic duct and 2 distally and divided the duct we then clipped the artery with 25 mm clips proximally on the artery and one distally and divided the artery we dissected the gallbladder out of the liver bed without too much difficulty although there is a lot of port and tension on the ports due to the thickness of his abdominal wall the gallbladder was full of stones we decompressed the gallbladder by cauterizing IT AND THEN USING THE SUCTION-SEAL SKINNER TO SUCK THE BILE OUT OF THE GALLBLADDER WE PLACED THE GALLBLADDER IN A 5 ENDO CATCH BAG AND PULLED IT OUT THROUGH THE SUBXIPHOID 5 MM TROCAR SITE BY REMOVING THE TROCAR WIDENING THE SKIN INCISION AND FASCIA. WE INSPECTED FOR BLEEDING THERE WAS NO BLEEDING BUT WE DECIDED TO PLACE ONE PIECE OF SURGICEL IN THE LIVER BED. WE REMOVED ALL TROCHARS WE CLOSED THE SKIN INCISIONS WITH SUBCUTICULAR STITCHES STERI-STRIPS AND DRY STERILE DRESSINGS WERE PLACED PATIENT TOLERATED THE PROCEDURE WITHOUT COMPLICATIONS WAS EXTUBATED. THE PATIENT WAS SOMEWHAT BELLIGERENT HE WOKE UP UNDER ANESTHESIA AND HAD TO BE RESTRAINED AND NOTED NOT TO HURT HIMSELF OR FALL OFF OF THE BED. HE WAS THEN TAKEN TO THE RECOVERY ROOM IN STABLE CONDITION Findings: thick gallbladder with omental adhesions to gallbladder multiple large stones Discharge Disposition: PACU
[2016-12-15 19:12] VITALS: BP 146/80
--- NOTE | 2016-12-15 19:13 | NUR ---
RETURNED FROM OR. A & O X 3. ON RA. VSS. C/O PAIN 5/10 TO ABDOMEN. DSG X 5 NOTED TO ABDOMEN. CALL LIGHT WITHIN REACH.
[2016-12-15 22:18] VITALS: BP 118/70
--- NOTE | 2016-12-15 22:59 | PN- General Surgery ---
Subjective Subjective: POSTOP CHECK Pt is now s/p lap angely for gallstone pancreatitis. He tolerated the procedure well and remains stable at this time. He is resting comfortably and expresses no major complaints. He denies pain or nausea. Tolerating clears. Voided x 1. Objective Vital Signs and I&Os Vital Signs Date Time Temp Pulse Resp B/P B/P Pulse O2 O2 Flow FiO2 Mean Ox Delivery Rate 12/15 2218 98.4 60 18 118/70 92 Room Air 12/15 1912 97.8 70 16 146/80 91 Room Air 12/15 1402 99.3 86 20 140/84 96 Room Air 12/15 1039 99.2 84 16 150/90 95 Room Air 12/15 0659 98.6 72 20 150/82 95 Room Air 12/15 0000 96 Room Air Intake & Output 12/15 1600 12/15 0800 12/15 0000 12/14 1600 12/14 0800 12/14 0000 Intake Total 500 800 120 800 800 800 Output Total 320 Balance 500 800 120 800 800 480 Intake, IV 450 800 800 800 800 Intake, Oral 50 0 120 Number 0 Bowel Movements Output, Urine 320 Patient 500 lb Weight Weight Standing Scale Measurement Method Physical Exam: Gen: Pt is resting, but arousable. Abdomen: Obese, soft, does not appear distended. Dressings contain a scant amount of bloody drainage. No BS appreciated at this time. No tenderness. Assessment/Plan Assessment/Plan Pt is a 41 yo, morbidly obese, male who is now POD #0 s/p laparoscopic cholecystectomy for gallstone pancreatitis. He remains stable. Plan: Clear liquids tonight. IVF's. F/u LFTs in AM. If they continue to decrease, will likely advance diet as tolerated. DVT ppx with SC lovenox. Encourage ambulation. Pain control with dilaudid for now. OK to change to oral meds when tolerating increased po. Medical management per primary team. We will continue to follow.
[2016-12-16 01:01] VITALS: BP 144/80
[2016-12-16 03:00] VITALS: BP 126/70
[2016-12-16 06:39] VITALS: BP 138/86
--- NOTE | 2016-12-16 07:50 | PN- General Surgery ---
Subjective Subjective: pod#1 s/p lap angely no major issues ovenight denies cp, sob, no n+v Objective Vital Signs and I&Os Vital Signs Date Time Temp Pulse Resp B/P B/P Pulse O2 O2 Flow FiO2 Mean Ox Delivery Rate 12/16 0639 98.6 71 18 138/86 93 Room Air 12/16 0300 98.8 75 18 126/70 93 Room Air 12/16 0101 98.9 67 18 144/80 91 Room Air 12/15 2218 98.4 60 18 118/70 92 Room Air 12/15 1912 97.8 70 16 146/80 91 Room Air 12/15 1402 99.3 86 20 140/84 96 Room Air 12/15 1039 99.2 84 16 150/90 95 Room Air Intake & Output 12/16 0800 12/16 0000 12/15 1600 12/15 0800 12/15 0000 12/14 1600 Intake Total 500 250 500 800 120 800 Output Total 700 800 Balance -200 -550 500 800 120 800 Intake, IV 400 200 450 800 800 Intake, Oral 100 50 50 0 120 Number 0 Bowel Movements Output, Urine 700 800 Patient 500 lb Weight Weight Standing Scale Measurement Method Physical Exam: cv: rrr lungs: clear abd: obese, drsg dry minimal tenderness to palp ext: distal cms itact no calf tenderness Assessment/Plan Assessment/Plan srugical stable plan f/u lft's oob bed ambulate if lft's stable will sign off if elevated may need gi consult for ercp will d/w attneding
[2016-12-16 08:41] LABS: ABSOLUTE BASOPHIL COUNT 0 /CUMM (0.0-0.2); ABSOLUTE EOSINOPHIL COUNT 0 /CUMM (0.0-0.7); ABSOLUTE LYMPH COUNT 1.1 /CUMM (1.2-3.4); ABSOLUTE MONOCYTE COUNT 0.6 /CUMM (0.10-0.60); BASOPHIL % 0.1 % (0.0-2.0); EOSINOPHIL % 0 % (0-5); GRANULOCYTE % 85.9 % (42.2-75.2); HEMATOCRIT 35.6 % (42-52); MEAN CORPUSCULAR HGB 28.4 PG (27.0-31.0); MEAN CORPUSCULAR HGB CONC 33.5 G/DL (33.0-37.0); MEAN CORPUSCULAR VOLUME 84.6 FL (80.0-94.0); MEAN PLATELET VOLUME 8.6 FL (7.4-10.4); PLATELET COUNT 299 /CUMM (130-400); RED BLOOD CELL CT 4.21 /CUMM (4.70-6.10); WHITE BLOOD CELL COUNT 11.6 /CUMM (4.8-10.8)
[2016-12-16] MEDS ORDERED: OMEPRAZOLE20 M2 PO ×2 (10:23→11:55)
--- NOTE | 2016-12-16 10:31 | Patient Discharge Instructions ---
Discharge Instructions General Discharge Information You were seen/treated for: 1. Pancreatitis 2/2 gallstones You had these procedures: 1. Cholecystectomy Watch for these problems: 1. Abdominal pain 2. Nausea, vomiting 3. Fever 4. Surgical site infection Special Instructions: 1. Follow up with your surgeon as instructed 2. Follow up with you hydrostatic tubing tester as instructed 3. Take any meds as prescribed 4. Follow up with PCP regarding kidney nodule 5. You will be getting an ERCP outpatient with the surgeon 6. You will likely need to be on a statin medication but your liver enzymes are elevated at this time so we will not start. Follow up with your primary care provider to re-evaluate start of statin medication. 6. Check you LFT function on Sunday Diet Recommended Diet: Heart Healthy Activity Activity Self Limited: Yes Acute Coronary Syndrome Inclusion Criteria At DC or during hospital stay patient has or had the following: ACS DIAGNOSIS No Discharge Core Measures Meds if any: Prescribed or Continued at Discharge Meds if any: NOT Prescribed or Continued at Discharge Congestive Heart Failure Inclusion Criteria At DC or during hospital stay patient has or had the following: CHF DIAGNOSIS No Discharge Core Measures Meds if any: Prescribed or Continued at Discharge Meds if any: NOT Prescribed or Continued at Discharge Cerebrovascular accident Inclusion Criteria At DC or during hospital stay patient has or had the following: CVA/TIA Diagnosis No Discharge Core Measures Meds if any: Prescribed or Continued at Discharge Meds if any: NOT Prescribed or Continued at Discharge Venous thromboembolism Inclusion Criteria VTE Diagnosis No VTE Type NONE VTE Confirmed by (Test) NONE Discharge Core Measures - Per Current guidelines, there needs to be overlap - treatment for the first 5 days of Warfarin therapy. - If discharged on Warfarin prior to 5 days of - overlap therapy, the patient will need to be - assessed for post discharge needs including - *Post discharge parental anticoagulation - *Warfarin and/or parental anticoagulation education - *Follow up date to check INR post discharge At least 5 days overlap therapy as Inpatient No Meds if any: Prescribed or Continued at Discharge Note: Overlap Therapy is Warfarin and Anticoagulant Meds if any: NOT Prescribed or Continued at Discharge
--- NOTE | 2016-12-16 10:35 | PN- Housestaff ---
Subjective Follow-up For: Acute pancreatitis 2/2 to gallstones, s/p cholecystectomy POD #1 Complaints: no complaints Subjective: I spoke to and examined the pt this AM. Pt was sitting comfortably in chair eating breakfast. Denies pain along surgical site or elsewhere. Pt states he just started eating this morning. Denies n/v, fever, chills, abdominal pain, SOB or chest pain. Review of Systems Constitutional: Denies: no symptoms, see HPI, chills, diaphoresis, fever, weakness. Cardiovascular: Denies: chest pain. Respiratory: Denies: cough, short of breath. Gastrointestinal: Denies: abdominal pain, constipation, diarrhea, nausea, vomiting. Objective Last 24 Hrs of Vital Signs/I&O Vital Signs Date Time Temp Pulse Resp B/P B/P Pulse O2 O2 Flow FiO2 Mean Ox Delivery Rate 12/16 0639 98.6 71 18 138/86 93 Room Air 12/16 0300 98.8 75 18 126/70 93 Room Air 12/16 0101 98.9 67 18 144/80 91 Room Air 12/15 2218 98.4 60 18 118/70 92 Room Air 12/15 1912 97.8 70 16 146/80 91 Room Air 12/15 1402 99.3 86 20 140/84 96 Room Air 12/15 1039 99.2 84 16 150/90 95 Room Air Intake & Output 12/16 1600 12/16 0800 12/16 0000 Intake Total 500 250 Output Total 700 800 Balance -200 -550 Intake, IV 400 200 Intake, Oral 100 50 Output, Urine 700 800 Physical Exam General Appearance: Alert, Oriented X3, No Acute Distress, morbidly obese HEENT: Atraumatic, PERRLA, EOMI, Mucous Membr. moist/pink Cardiovascular: Regular Rate, Normal S1, Normal S2, No Murmurs Lungs: Clear to Auscultation Abdomen: Normal Bowel Sounds, Soft Extremities: No Edema, Normal Pulses, No Tenderness/Swelling Vascular: Normal Pulses, Pulses Symmetrical Last 24 Hrs of Lab/Favio Results Last 24 Hrs of Labs/Mics: Laboratory Tests 12/16/16 0633: Anion Gap 12, Estimated GFR > 60, BUN/Creatinine Ratio 15.0, Magnesium 2.2, CBC w Diff MAN DIFF ORDERED, RBC 4.21 L, MCV 84.6, MCH 28.4, RDW 14.0, MPV 8.6, Gran % 85.9 H, Lymphocytes % 9.3 L, Monocytes % 4.7, Eosinophils % 0, Basophils % 0.1, Absolute Granulocytes 10.0 H, Absolute Lymphocytes 1.1 L, Absolute Monocytes 0.6, Absolute Eosinophils 0, Absolute Basophils 0, Platelet Estimate VERIFIED BY SMEAR, Polychromasia 1+, PUBS MCHC 33.5 Assessment/Plan Assessment: Mr Underwood is a 41-year-old male with a past medical history of morbid obesity , diverticulosis who comes in for chief complaint of epigastric pain. Upon evaluation patient was found to have lipase 7340, with radiographic evidence of and a subsequent diagnosis of pancreatitis secondary to gallstones. Is now status post cholecystectomy. PLAN # Acute Pancreatitis 2/2 gallstones s/p cholecystectomy POD #1: Patient came in with lipase 7340; the pancreas was not visible due to body habitus on imaging. However given that patient has typical pain and elevated lipase he meets criteria for pancreatitis. Repeat lipase was 5787. Not checking anymore. * Diet advanced to full * Pain - patient currently pain free, discharge recommendation for OTC pain med * Continue Omeprazole 20 mg PO on discharge * No cholangiogram done intraoperatively. Spoke to surgery- recommend outpatient ERCP if patient's LFT spike after discharge. # Transaminitis: On admission AST 251, ALT 497, alkaline phosphatase 222. There is consideration for gallstone etiology of pancreatitis. * AST: 251 --> 462 --> 91 --> 35 --> 22 --> 46 * ALT: 497 --> 694 --> 465 --> 292 -->196 --> 170 * Alk Phos: 222 --> 220 --> 204 --> 169 --> 145 --> 149 * All trending down * Script will be given after discharge for December 18, 2016 for repeat LFTs. Follow up with GI and surgery. #Kidney Incidentaloma: Per CT-1.3 cm low-attenuation lesion in the lower pole of the right kidney not compatible with a simple cyst. * Out patient follow up with US will be necessary. #Morbid obesity: Patient has been counseled about obesity, and will need further management as an outpatient basis. #Diet: Full #DVT ppx: SQ Lovenox #Code status: Full code Problem List: 1. Pancreatitis 2. Upper abdominal pain, unspecified Pain Ratin Pain Location: NONE Pain Goal: Remain pain free Pain Plan: NONE Tomorrow's Labs & Rationales: NONE
--- NOTE | 2016-12-16 10:43 | PN- General Surgery ---
Surgical Brief Attending Note Brief Attending Note: Patient seen and examined this morning looks well without any signs of scleral icterus or jaundice he has no complaints of pain, she is been able to eat without difficulty. We're waiting liver function tests results. As long as he is not a marked increase in his transaminases are bilirubin I feel he is stable for discharge. He can keep the dressings on an shower he will be seen in our [place] office for follow-up in 5-10 days. Can resume regular diet. If there is a spike in transaminases or LFTs and we will have to arrange for an outpatient ERCP
--- NOTE | 2016-12-16 15:30 | PN- Att Addend ---
Attending MD Review Statement Attending Statement Attending MD Statement: examined this patient, discuss w/resident/PA/FINE CRAFT ARTIST, agreed w/resident/PA/FINE CRAFT ARTIST, reviewed EMR data (avail), discussed w/nursing Attending Assessment/Plan: Laboratory Tests 12/16/16 0633: Anion Gap 12, Estimated GFR > 60, BUN/Creatinine Ratio 15.0, Magnesium 2.2, Total Bilirubin 0.8, Direct Bilirubin 0.5 H, AST 46, ALT 170 H, Alkaline Phosphatase 149 H, Total Protein 6.3, Albumin 3.4 L, CBC w Diff MAN DIFF ORDERED, RBC 4.21 L, MCV 84.6, MCH 28.4, RDW 14.0, MPV 8.6, Gran % 85.9 H, Lymphocytes % 9.3 L, Monocytes % 4.7, Eosinophils % 0, Basophils % 0.1, Absolute Granulocytes 10.0 H, Absolute Lymphocytes 1.1 L, Absolute Monocytes 0.6, Absolute Eosinophils 0, Absolute Basophils 0, Platelet Estimate VERIFIED BY SMEAR, Polychromasia 1+, PUBS MCHC 33.5 Vital Signs Date Time Temp Pulse Resp B/P B/P Pulse O2 O2 Flow FiO2 Mean Ox Delivery Rate 12/16 0639 98.6 71 18 138/86 93 Room Air 12/16 0300 98.8 75 18 126/70 93 Room Air 12/16 0101 98.9 67 18 144/80 91 Room Air 12/15 2218 98.4 60 18 118/70 92 Room Air 12/15 1912 97.8 70 16 146/80 91 Room Air gallstone pancreatitis s/p cholecystectomy. stable , dc home today. will f/u with repeat LFTs on sunday. pt has f/u with surgery clinic on sunday. Low fat diet recommended. dc home in stable condition.
== END 2016-12-16 13:00 | DRG 418 ==
LOC: ERH 22:28 → 2NA 12-12 01:17 → ERHI 12-12 01:17 → ENRESERV 12-12 02:38 → 2NA 12-12 03:28 → ENTRNSPT 12-15 18:45 → CMPTRNSPT 12-15 19:40 → ENPENDDIS 12-16 12:08 → 2NA 12-16 13:00
PROVIDERS: Emergency Medicine; Physician Assistant Surgical; Student in an Organized Health Care Education/Training Program; ADMIT Internal Medicine
PROC: 0FT44ZZ Resection of Gallbladder, Percutaneous Endoscopic Approach (ICD-10-PCS; principal; 2016-12-15)
DX: K85.10 Biliary acute pancreatitis without necrosis or infection (principal); Z68.42 Body mass index [BMI] 45.0-49.9, adult; N28.89 Other specified disorders of kidney and ureter; K80.20 Calculus of gallbladder without cholecystitis without obstruction; K80.50 Calculus of bile duct without cholangitis or cholecystitis without obstruction; E66.01 Morbid (severe) obesity due to excess calories; E78.00 Pure hypercholesterolemia, unspecified; R74.0 Nonspecific elevation of levels of transaminase and lactic acid dehydrogenase [LDH]; F32.9 Major depressive disorder, single episode, unspecified; Z85.828 Personal history of other malignant neoplasm of skin; K66.0 Peritoneal adhesions (postprocedural) (postinfection)
CPT/HCPCS: 2NASP; 36415; 81001; 82436; 93005; 93010; C9399; J0131; J0690; J1650; J7120